=== PATIENT | female | born 1955 | race African-American/Black ===

== ENCOUNTER → 2017-06-02 | Outpatient (CLI) | payer BC ==
--- NOTE | 2017-06-02 14:06 | US ---
EXAMINATION TYPE: US thyroid st tissue head/neck DATE OF EXAM: 06/02/2017 COMPARISON: NONE CLINICAL HISTORY: R22.9 Lump of Skin. Pt states palpable lump right temporal/TMJ area x many years In area of pt's palpable there is a complex lesion= 1.8 x 1.5 x 1.8 cm, with vascularity IMPRESSION: Probable enlarged lymph node at the site of clinical concern. Contrast-enhanced CT of the neck is adv ised as well as clinical correlation.
== END | disposition home or self-care (01) ==
LOC: RADUSWWP 13:28
PROVIDERS: ATTEND Family Medicine
DX: R22.0 Localized swelling, mass and lump, head (principal)
CPT/HCPCS: 76536

== ENCOUNTER → 2017-06-13 | Outpatient (CLI) | payer BC ==
--- NOTE | 2017-06-13 09:12 | US ---
EXAMINATION TYPE: US kidneys/renal and bladder DATE OF EXAM: 06/13/2017 COMPARISON: NONE CLINICAL HISTORY: R94.4 ABN KIDNEY FUNCTIONS. No symptoms EXAM MEASUREMENTS: Right Kidney: 9.0 x 3.7 x 4.2 cm Left Kidney: 9.4 x 4.8 x 5.6 cm Right Kidney: slightly lobular contour Left Kidney: slightly lobular contour Bladder: wnl Bilateral Jets seen: no There is no evidence for hydronephrosis at this point in time. No nephrolithiasis is seen. No evgeny s are identified. The urinary bladder is anechoic. Bilateral ureteral jets are not seen. IMPRESSION: No hydronephrosis is evident bilaterally.
== END | disposition home or self-care (01) ==
LOC: RADUSWWP 08:27
PROVIDERS: ATTEND Family Medicine
DX: B18.2 Chronic viral hepatitis C (principal); R94.4 Abnormal results of kidney function studies
CPT/HCPCS: 76770

== ENCOUNTER → 2017-07-05 | Outpatient (CLI) | payer BC ==
--- NOTE | 2017-07-05 11:23 | US ---
EXAMINATION TYPE: US abdomen complete DATE OF EXAM: 07/05/2017 COMPARISON: NONE CLINICAL HISTORY: B18.2 HEP C, ELEV AFP. abnormal labs, no symptoms EXAM MEASUREMENTS: Liver Length: 19.5 cm Gallbladder Wall: 0.2 cm CBD: 0.6 cm Spleen: 12.3 cm Right Kidney: 9.3 x 3.6 x 4.0 cm Left Kidney: 9.1 x 3.9 x 6.7 cm Pancreas: wnl Liver: enlarged, slightly heterogenous Gallbladder: wnl Evidence for sonographic Ojeda's sign: no CBD: wnl Spleen: wnl Right Kidney: wnl Left Kidney: limited views due to bowel gas appear wnl Upper IVC: wnl Abd Aorta: wnl The liver is slightly enlarged and heterogenous. The intrahepatic portion of the IVC and proximal abd ominal aorta are within normal limits. There is no evidence of cholelithiasis. Common bile duct is unremarkable. The visualized portions of the pancreas are homogenous. The spleen is unremarkable. Kidneys are symmetric and free of hydronephrosis. No renal lesions are seen. IMPRESSION: 1. Fatty liver and hepatomegaly
== END | disposition home or self-care (01) ==
LOC: RADUSWWP 08:19
PROVIDERS: ATTEND Internal Medicine Infectious Disease
DX: K76.0 Fatty (change of) liver, not elsewhere classified (principal); R16.0 Hepatomegaly, not elsewhere classified; B18.2 Chronic viral hepatitis C
CPT/HCPCS: 76700

== ENCOUNTER → 2017-07-20 | Outpatient (CLI) | payer BC | END | disposition home or self-care (01) | LOC: LABWHC1 13:48 | PROVIDERS: ATTEND Internal Medicine Infectious Disease | DX: B18.2 Chronic viral hepatitis C (principal) | CPT/HCPCS: 36415 ==

== ENCOUNTER 2017-09-06 17:53 | Emergency (ER) | payer BC ==
[2017-09-06 18:10] LABS: Glucose,Whole Blood 377 mg/dL (75-99)
--- NOTE | 2017-09-06 18:46 | ED ---
Recheck HPI - General Chief Complaint: Recheck/Abnormal Lab/Rx Stated Complaint: High Blood Sugar Time Seen by Provider: 09/06/17 18:25 Source: patient Mode of arrival: wheelchair Limitations: no limitations - History of Present Illness Initial Comments: Type II diabetic presents for hyperglycemia. Patient states yesterday morning her glucose reading was "high". Patient states she took her regular Lantus and it went down to 140. Patient states her glucoses have been ranging from 1:30 to 400 over the past week. Had a reading of 400 this afternoon, so she came to ER. Patient states 4 months ago she was taken off metformin and Lantus was increased to 20 units once a day. Patient takes her Lantus at 11 PM normally, has not had it yet today. states she works midnights. Patient admits to increased thirst, mild increase in urinary frequency. She denies confusion, fatigue, sweating, abdominal pain, nausea, vomiting. Denies recent illnesses or infections. MD Complaint: abnormal lab - Related Data Home Medications Medication Instructions Recorded Confirmed Hydrochlorothiazide [Hydrodiuril] 25 mg PO DAILY 09/06/17 09/06/17 Insulin Glargine [Lantus] 20 unit SQ HS 09/06/17 09/06/17 Allergies Allergy/AdvReac Type Severity Reaction Status Date / Time tramadol Allergy Anaphylaxis Verified 09/06/17 19:03 Review of Systems ROS Statement: Those systems with pertinent positive or pertinent negative responses have been documented in the HPI. ROS Other: All systems not noted in ROS Statement are negative. Constitutional: Denies: fever, chills, weakness Eyes: Denies: vision change ENT: Denies: throat pain, congestion Respiratory: Denies: cough, dyspnea Cardiovascular: Denies: chest pain, palpitations Endocrine: Reports: polydipsia, polyuria. Denies: fatigue, heat or cold intolerance Gastrointestinal: Denies: abdominal pain, nausea, vomiting, diarrhea, constipation Genitourinary: Reports: frequency. Denies: urgency, dysuria, hematuria Skin: Denies: rash Neurological: Denies: headache, confusion Past Medical History Past Medical History: Diabetes Mellitus, Hypertension Additional Past Medical History / Comment(s): Hepatitis C History of Any Multi-Drug Resistant Organisms: None Reported Past Surgical History: Appendectomy Additional Past Surgical History / Comment(s): Past Psychological History: No Psychological Hx Reported Smoking Status: Current every day smoker Past Alcohol Use History: None Reported Past Drug Use History: None Reported General Exam - General Exam Comments Initial Comments: Sitting up on side of bed. No acute distress. Conversing normally. Well- groomed well-dressed. Calm, pleasant, smiling. Well appearing. Limitations: no limitations General appearance: alert, in no apparent distress Head exam: Present: atraumatic, normocephalic Eye exam: Present: PERRL, EOMI ENT exam: Present: mucous membranes moist Respiratory exam: Present: normal lung sounds bilaterally. Absent: respiratory distress, wheezes, rales Cardiovascular Exam: Present: regular rate, normal rhythm GI/Abdominal exam: Present: soft. Absent: distended, tenderness, guarding, rebound Neurological exam: Present: alert, oriented X3, CN II-XII intact Psychiatric exam: Present: normal affect, normal mood Skin exam: Present: warm, dry, intact, normal color. Absent: rash Course Vital Signs 09/06/17 18:04 Temperature 98.6 F Pulse Rate 65 Respiratory 16 Rate Blood Pressure 147/73 O2 Sat by Pulse 98 Oximetry Medical Decision Making - Medical Decision Making Patient is well-appearing. Patient appears to have chronic issues of hypoglycemia. Patient does not appear to have signs of DKA on exam. Patient's only symptoms are mild polydipsia and polyuria. Patient is due for lances later tonight. Patient's glucose on arrival 377. Patient states she can get into see her primary care physician tomorrow morning patient states she did not want to come to the ER because of the expenses, patient states she does not want have lab work done. Patient does agree to have UA completed. Patient declined IV fluids. Patient understands withou blood work completed cannot rule out more serious or significant pathology. Patient agrees to oral hydration with water until seen by her primary care physician. UA shows leukocyte esterase and some bacteria, however only 4 WBCs. Patient updated without results. She agrees to have repeat urinalysis if symptoms continue, may require antibiotics. She agrees to follow up with her primary care physician tomorrow for repeat glucose and insulin adjustment. Return immediately if new or worsening symptoms. Patient understands and agrees. Patient is smiling and happy with plan of care. - Lab Data Lab Results 09/06/17 09/06/17 Range/Units 18:07 18:45 POC Glucose (mg/dL) 377 H (75-99) mg/dL POC Glu [employer] Worker ID Sonali Goldstein Urine Color Yellow Urine Appearance Clear (Clear) Urine pH 6.5 (5.0-8.0) Ur Specific [place] 1.019 (1.001-1.035) Urine Protein Trace H (Negative) Urine Glucose (UA) 1+ H (Negative) Urine Ketones Negative (Negative) Urine Blood Negative (Negative) Urine Nitrite Negative (Negative) Urine Bilirubin Negative (Negative) Urine Urobilinogen 6.0 (<2.0) mg/dL Ur Leukocyte Esterase Moderate H (Negative) Urine RBC 1 (0-5) /hpf Urine WBC 4 (0-5) /hpf Ur Squamous Epith Cells 4 (0-4) /hpf Urine Bacteria Occasional H (None) /hpf Urine Mucus Rare H (None) /hpf Disposition Clinical Impression: Hyperglycemia Disposition: HOME SELF-CARE Condition: Good Instructions: Type 2 Diabetes in Adults (ED) Referrals: Faby Loving MD [Primary Care Provider] - 1-2 days
[2017-09-06 18:54] LABS: Appearance,Urine Clear (Clear); Bacteria,Urine Occasional /hpf; Bilirubin,Urine Negative (Negative); Glucose,Urine (UA) 1+ (Negative); Ketones,Urine Negative (Negative); Leukocyte Esterase,Urine Moderate (Negative); Mucus,Urine Rare /hpf; Nitrite,Urine Negative (Negative); PH, Urine 6.5 (5.0-8.0); Particle Count 3973; Protein,Urine Trace (Negative); RBC,Urine 1 /hpf (0-5); Specific Gravity,Urine 1.019 (1.001-1.035); Squamous Epithelial Cell,Urine 4 /hpf (0-4); UA Billing (MACRO vs. MICRO) MICRO; WBC,Urine 4 /hpf (0-5)
[2017-09-06 19:39] VITALS: BP 155/86; PULSE 67; RESP 18; TEMP 97.8
== END 2017-09-06 19:52 | disposition home or self-care (01) ==
LOC: EC 17:53
DX: E11.65 Type 2 diabetes mellitus with hyperglycemia (principal); I10 Essential (primary) hypertension; F17.200 Nicotine dependence, unspecified, uncomplicated; Z79.4 Long term (current) use of insulin; Z79.899 Other long term (current) drug therapy; Z88.5 Allergy status to narcotic agent
CPT/HCPCS: 36415; 81001; 99284

== ENCOUNTER → 2018-02-27 | Outpatient (CLI) | payer BC ==
[2018-02-27 13:49] LABS: Basophils % (A) 0 %; Eosinophils # (A) 0.2 k/uL (0-0.7); Eosinophils % (A) 2 %; HGB 12.9 gm/dL (11.4-16.0); Hypochromasia Slight; Lymphocytes % (A) 31 %; MCH 26.6 pg (25.0-35.0); MCHC 31.5 g/dL (31.0-37.0); MCV 84.4 fL (80.0-100.0); Mean Platelet Volume 7.9; Monocytes # (A) 0.5 k/uL (0-1.0); Monocytes % (A) 5 %; Neutrophils # (A) 5.7 k/uL (1.3-7.7); Neutrophils % (A) 59 %; Platelet Count 221 k/uL (150-450); RBC 4.85 m/uL (3.80-5.40); RDW 14.9 % (11.5-15.5); WBC 9.6 k/uL (3.8-10.6)
[2018-02-27 14:06] LABS: Anion Gap 13 mmol/L; Blood Urea Nitrogen 15 mg/dL (7-17); Carbon Dioxide 25 mmol/L (22-30); Chloride 110 mmol/L (98-107); Glucose 149 mg/dL (74-99); Potassium 4.1 mmol/L (3.5-5.1); Sodium 148 mmol/L (137-145)
[2018-02-28 15:27] LABS: Hepatits C Virus RNA Not detected (Not detected); Hepatits C Virus RNA, Quant <12 IU/mL (<12); LOG HCV IU/mL <1.08 (<1.08)
== END | disposition home or self-care (01) ==
LOC: LABWHC1 13:05
PROVIDERS: ATTEND Internal Medicine Infectious Disease
DX: B18.2 Chronic viral hepatitis C (principal)
CPT/HCPCS: 36415; 80048; 85025; 87522

== ENCOUNTER → 2018-05-09 | Outpatient (CLI) | payer BC ==
[2018-05-09 16:25] LABS: Basophils % (A) 0 %; Eosinophils # (A) 0.3 k/uL (0-0.7); Eosinophils % (A) 4 %; HCT 38.2 % (34.0-46.0); HGB 12.1 gm/dL (11.4-16.0); Lymphocytes # (A) 2.9 k/uL (1.0-4.8); Lymphocytes % (A) 31 %; MCH 26.8 pg (25.0-35.0); MCHC 31.8 g/dL (31.0-37.0); MCV 84.3 fL (80.0-100.0); Mean Platelet Volume 7.4; Monocytes # (A) 0.4 k/uL (0-1.0); Monocytes % (A) 4 %; Neutrophils # (A) 5.5 k/uL (1.3-7.7); Neutrophils % (A) 59 %; Platelet Count 217 k/uL (150-450); RBC 4.53 m/uL (3.80-5.40); RDW 14.3 % (11.5-15.5); WBC 9.3 k/uL (3.8-10.6)
[2018-05-09 16:33] LABS: Calcium 10.1 mg/dL (8.4-10.2); Potassium 4.1 mmol/L (3.5-5.1)
[2018-05-11 14:45] LABS: Hepatits C Virus RNA Not detected (Not detected); Hepatits C Virus RNA, Quant <12 IU/mL (<12); LOG HCV IU/mL <1.08 (<1.08)
== END | disposition home or self-care (01) ==
LOC: LABWHC1 15:52
PROVIDERS: ATTEND Internal Medicine Infectious Disease
DX: B18.2 Chronic viral hepatitis C (principal)
CPT/HCPCS: 36415; 80048; 82105; 84450; 84460; 85025; 87522

== ENCOUNTER → 2019-07-11 | Outpatient (CLI) | payer BC ==
--- NOTE | 2019-07-19 10:11 | MM ---
Reason for exam: screening (asymptomatic). Last mammogram was performed 8 years and 1 month ago. History: Patient is postmenopausal. Physical Findings: A clinical breast exam by your physician is recommended on an annual basis and results should be correlated with mammographic findings. MG Screening Mammo w CAD Bilateral CC and MLO view(s) were taken. Prior study comparison: June 14, 2011, mammogram. There are scattered fibroglandular densities. Finding: There are new fine regional calcifications in the inner quadrant, anterior position of the right breast. Focal asymmetry right inner CC view. New finding since June 14, 2011. ASSESSMENT: Incomplete: need additional imaging evaluation, BI-RAD 0 RECOMMENDATION: Special view mammogram of the right breast. If lesion persists on supplemental views, image directed ultrasound is recommended. [facility] will attempt to contact patient to return for supplemental views and ultrasound if indicated.
== END | disposition home or self-care (01) ==
LOC: RADMAMWWP 09:07
PROVIDERS: ATTEND Family Medicine
DX: Z12.31 Encounter for screening mammogram for malignant neoplasm of breast (principal)
CPT/HCPCS: 77067

== ENCOUNTER → 2019-07-20 | Outpatient (CLI) | payer BC ==
--- NOTE | 2019-07-20 13:16 | CT ---
EXAMINATION TYPE: CT soft tissue neck w con DATE OF EXAM: 07/20/2019 COMPARISON: None HISTORY: 64-year-old female Right sided swelling. TECHNIQUE: Contiguous axial scanning of the soft tissues of the neck performed with IV Contrast, kristopher ent injected with 100 mL of Isovue 300. Coronal/sagittal reconstructions performed. CT DLP: 513.6 mGycm Automated exposure control for dose reduction was used. FINDINGS: There is an enhancing anterior midline mass that appears to have a broad-based attachment on sagittal series to the floor of the anterior cranial fossa. The mass measures 2.1 x 1.6 cm and is located dir ectly anterior to the anterior cerebral artery. Orbits and globes and mastoid air cells appear clear. There is mucosal thickening within the left fro ntal sinus. The nasopharynx appears clear. Mild tonsillar hypertrophy, particularly on the right causing asymmetric effacement of the right vall ecular space. No enhancing mucosal space lesion here. Epiglottis and prevertebral soft tissues appear normal. The glottic and subglottic structures as well as the tracheal column and visualized upper lungs appea r clear. There is biapical pleural parenchymal scarring with moderate centrilobular emphysema. Thyroid gland and submandibular gland appears satisfactory. Possible vague area of nodular enhancement posterior aspect of the superficial left parotid lobe on t he anterior margin of the left sternocleidomastoid measuring 1.3 x 1.3 x 1.1 cm, reference axial imag e 64 and coronal image 39. In addition, there is a mildly lobulated heterogeneous, avidly enhancing mass of the right superficia l lobe of the parotid gland measuring 2.2 x 2.0 x 2.0 cm. Scattered prominent but nonenlarged upper cervical lymph nodes measuring up to 8 mm short axis. Bones: Moderate spondylotic change mid to lower cervical spine with degenerative grade 1 anterolisthe sis at C3-C4. IMPRESSION: 1. HETEROGENEOUS BUT AVIDLY ENHANCING 2.2 CM MILDLY LOBULATED MASS SUPERFICIAL LOBE OF THE RIGHT PARO TID GLAND. POSSIBLE PLEOMORPHIC ADENOMA. MALIGNANT SALIVARY GLAND TUMOR NOT EXCLUDED AT THIS TIME. 2. A SECOND NODULAR AREA OF MILD ENHANCEMENT POSTERIOR ASPECT OF THE LEFT SUPERFICIAL LOBE OF THE PAR OTID GLAND MEASURING 1.3 CM. CORRELATE FOR ANY PALPABLE ABNORMALITY AND CONSIDER ULTRASOUND TO ATTEMP T VISUALIZATION AND FOLLOW-UP OF THIS AREA. 3. ENHANCING INTRACRANIAL MASS MEASURING 2.1 CM ALONG THE ANTERIOR MIDLINE. THIS IS LOCATED ALONG THE COURSE OF THE ANTERIOR CEREBRAL ARTERY BUT SEEMS TO HAVE A BROAD-BASED ATTACHMENT TO THE FLOOR OF TH E ANTERIOR CRANIAL FOSSA. MENINGIOMA IS FAVORED. CONTRAST-ENHANCED MRI ALONG WITH MR ANGIOGRAPHY CIRC LE OF PANDEY RECOMMENDED TO EXCLUDE THE POSSIBILITY OF ANEURYSM. 4. PARTIAL ASYMMETRIC EFFACEMENT RIGHT VALLECULAR SPACE LIKELY SECONDARY TO ASYMMETRIC LINGUAL TONSIL LAR HYPERTROPHY. NO ENHANCING MUCOSAL SPACE LESION SEEN HERE.
== END | disposition home or self-care (01) ==
LOC: RADCTMAIN 10:16
PROVIDERS: ATTEND Otolaryngology
DX: R22.1 Localized swelling, mass and lump, neck (principal); J35.1 Hypertrophy of tonsils; K11.8 Other diseases of salivary glands; Z88.6 Allergy status to analgesic agent
CPT/HCPCS: 82565; 84520; 70491; 36415; Q9967

== ENCOUNTER → 2019-08-02 | Outpatient (CLI) | payer BC ==
--- NOTE | 2019-08-03 09:11 | MM ---
Reason for exam: additional evaluation requested from abnormal screening. Last mammogram was performed 1 month ago. History: Patient is postmenopausal. Physical Findings: Nurse Summary: 1 x 1cm nodule in the right breast at 6 o'clock (nurse ts). MG 3D Work Up W/Cad RT Spot compression CC, spot compression MLO, LM, and CC with magnification view(s) were taken of the right breast. Prior study comparison: July 11, 2019, bilateral MG screening mammo w CAD. June 14, 2011, mammogram. Nodule persists. Ultrasound is recommended lower inner quadrant. These results were verbally communicated with the patient and result sheet given to the patient on 08/02/19. ASSESSMENT: Incomplete: need additional imaging evaluation, BI-RAD 0 RECOMMENDATION: Ultrasound of the right breast.
--- NOTE | 2019-08-03 09:13 | USB ---
Reason for exam: additional evaluation requested from abnormal screening. History: Patient is postmenopausal. US Breast Workup Limited RT Right limited breast ultrasound including focal area of concern, retroareolar and axilla demonstrates a 0.6 x 0.4 x 0.5cm hypoechoic lesion at 4 o'clock, a 0.3 x 0.2 x 0.3cm lesion too small to characterize at 6 o'clock and a 0.8 x 0.3 x 1.0cm superficial lesion at 6 o'clock. These results were verbally communicated with the patient and result sheet given to the patient on 08/02/19. ASSESSMENT: Benign, BI-RAD 2 RECOMMENDATION: Return to routine screening mammogram schedule for both breasts.
== END | disposition home or self-care (01) ==
LOC: RADMAMWWP 13:44
PROVIDERS: ATTEND Family Medicine
DX: R92.8 Other abnormal and inconclusive findings on diagnostic imaging of breast (principal)
CPT/HCPCS: 77061; 77065

== ENCOUNTER → 2020-06-10 | Outpatient (CLI) | payer BC ==
--- NOTE | 2020-06-10 13:05 | MR ---
EXAMINATION TYPE: MR angio head wo con DATE OF EXAM: 06/10/2020 12:59 PM COMPARISON: NONE HISTORY: Abnormal CT scan Three-dimensional [id number] intracranial MRA was performed with multiple intensity projection im ages submitted and source data reviewed at the workstation. The vertebrobasilar system as well as intracranial portions of the internal carotid arteries and thei r major tributaries are patent. I do not see evidence for sizable aneurysm or vascular malformation. IMPRESSION: Normal study.
--- NOTE | 2020-06-10 13:34 | MR ---
EXAMINATION TYPE: MR brain wo con DATE OF EXAM: 06/10/2020 1:04 PM COMPARISON: NONE HISTORY: Abnormal CT scan The patient could not complete the full examination given claustrophobia. Sagittal T1 data set was ob tained. The study is therefore nondiagnostic. IMPRESSION: Nondiagnostic examination as noted above.
== END | disposition home or self-care (01) ==
LOC: RADMRIMAIN 11:30
PROVIDERS: ATTEND Family Medicine
DX: R93.89 Abnormal findings on diagnostic imaging of other specified body structures (principal)
CPT/HCPCS: 70544

== ENCOUNTER → 2020-07-18 | Outpatient (CLI) | payer BC ==
--- NOTE | 2020-07-18 17:04 | MR ---
EXAMINATION TYPE: MR knee LT wo con DATE OF EXAM: 07/18/2020 COMPARISON: None HISTORY: Left knee pain TECHNIQUE: Multiplanar, multisequence imaging of the left knee is performed without IV contrast. FINDINGS: MEDIAL MENISCUS: Posterior horn of the medial meniscus is markedly attenuated, there is abnormal sign al present as well as thickening. LATERAL MENISCUS: Anterior and posterior horns are intact without tear. CRUCIATE LIGAMENTS: The anterior and posterior cruciate ligaments are intact and unremarkable. COLLATERAL LIGAMENTS: The medial collateral ligament and lateral collateral ligament complex are inta ct and unremarkable. EXTENSOR MECHANISM: Visualized quadriceps and patellar tendons are intact. EFFUSION: Small joint effusion POPLITEAL CYST: Minimal semimembranosus gastrocnemius cyst TRICOMPARTMENT SPACES: Reduction of the joint space and medial compartment is significant and there i s spurring in the medial lateral compartments CARTILAGE: Grade IV chondromalacia present in the medial compartment, there is marked geodes present within the proximal tibia, medial femoral condyle BONE MARROW SIGNAL: Some reactive marrow signal change also present with the associated geodes. OTHER: No additional significant abnormality is appreciated. 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
== END | disposition home or self-care (01) ==
LOC: RADMRIMAIN 14:43
PROVIDERS: ATTEND Family Medicine
DX: M17.12 Unilateral primary osteoarthritis, left knee (principal); G89.29 Other chronic pain

== ENCOUNTER → 2020-09-12 | Outpatient (CLI) | payer BC ==
[2020-09-12 20:19] LABS: Hepatitis B Surface AB- Quant 3.5 mIU/mL; Hepatitis B Surface Antibody Non-Reactive (Non-Reactive); Hepatitis B Surface Antigen Non-Reactive (Non-Reactive); Hepatitis C IgG Antibody Reactive (Non-Reactive)
[2020-09-12 20:53] LABS: HIV 2 AB Non-Reactive (Non-Reactive); HIV AB P24 Non-Reactive (Non-Reactive); HIV P24 AG Non-Reactive (Non-Reactive)
== END | disposition home or self-care (01) ==
LOC: LABWHC1 13:10
PROVIDERS: ATTEND Internal Medicine Interventional Cardiology
DX: Z77.21 Contact with and (suspected) exposure to potentially hazardous body fluids (principal)
CPT/HCPCS: 36415; 86706; 86803; 87340; 87390

== ENCOUNTER 2021-07-28 16:46 | Emergency (ER) | payer OTHER, MEDICARE ==
[2021-07-28 17:05] VITALS: RESP 18; TEMP 98.8
[2021-07-28] MEDS ORDERED: ALPRAZolam 0.25 MG TAB PO STA (17:18)
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
[2021-07-28 18:19] VITALS: BP 135/83; PULSE 72
== END 2021-07-28 18:22 | disposition home or self-care (01) ==
LOC: EC 16:46
DX: S20.211A Contusion of right front wall of thorax, initial encounter (principal); I10 Essential (primary) hypertension; E11.9 Type 2 diabetes mellitus without complications; Z88.5 Allergy status to narcotic agent; Z88.8 Allergy status to other drugs, medicaments and biological substances; Z90.49 Acquired absence of other specified parts of digestive tract; V43.52XA Car driver injured in collision with other type car in traffic accident, initial encounter; Y92.410 Unspecified street and highway as the place of occurrence of the external cause
CPT/HCPCS: 70450; 71046; 99285

== ENCOUNTER → 2021-08-03 | Outpatient (CLI) | payer OTHER, MEDICARE ==
--- NOTE | 2021-08-03 09:58 | US ---
EXAMINATION TYPE: US abdomen complete DATE OF EXAM: 08/03/2021 COMPARISON: CLINICAL HISTORY: R10.11 Right upper quadrant pain,S20.212D,V89.2XXD,S30.1XXD. RUQ pain. EXAM MEASUREMENTS: Liver Length: 16.2 cm Gallbladder Wall: 0.2 cm CBD: 0.3 cm Spleen: 11.0 cm Right Kidney: 10.7 x 4.0 x 3.9 cm Left Kidney: 10.7 x 4.1 x 5.4 cm Pancreas: Echogenic in appearance Liver: wnl Gallbladder: wnl Evidence for sonographic Ojeda's sign: neg CBD: wnl Spleen: wnl Right Kidney: No hydronephrosis or masses seen Left Kidney: No hydronephrosis or masses seen Upper IVC: wnl Abd Aorta: Proximal aorta no AAA visualized The liver is homogenous. The intrahepatic portion of the IVC and proximal abdominal aorta are within normal limits. There is no evidence of cholelithiasis. Common bile duct is unremarkable. The visu alized portions of the pancreas are homogenous. The spleen is unremarkable. Kidneys are symmetric a nd free of hydronephrosis. No renal lesions are seen. IMPRESSION: No significant abnormality appreciated.
== END | disposition home or self-care (01) ==
LOC: RADUSWWP 08:55
PROVIDERS: ATTEND Family Medicine
DX: R10.11 Right upper quadrant pain (principal)
CPT/HCPCS: 76700

== ENCOUNTER 2022-09-05 11:28 | Emergency (ER) | payer OTHER ==
[2022-09-05 11:44] VITALS: RESP 20; TEMP 98
[2022-09-05] MEDS ORDERED: DIPH,PERTUS(ACELL)TETVAC-LF 0.5 ML VIAL IM ONE (12:04)
--- NOTE | 2022-09-05 12:39 | ED ---
Wound/Laceration HPI - General Chief Complaint: Wound/Laceration Stated Complaint: [facility] - lt hand finger lac Time Seen by Provider: 09/05/22 11:46 Source: patient Mode of arrival: ambulatory Limitations: no limitations - History of Present Illness Initial Comments: Patient is a 67-year-old female presenting with chief complaint of laceration to the R 5th finger. Patient was at work getting tinfoil when she cut her finger on the blade on the box. Patient does not remember when her last tetanus shot was. She denies any numbness or tingling. No difficulty with range of motion. No weakness. Laceration is 1 cm in length. - Related Data Home Medications Medication Instructions Recorded Confirmed Insulin Glargine [Lantus] 25 unit SQ HS 09/06/17 01/27/22 Atorvastatin [Lipitor] 10 mg PO DAILY 01/14/22 01/27/22 Ergocalciferol [Vitamin D2 (1250 50,000 unit PO WEEKLY 01/14/22 01/22/22 Mcg = 32954 Iu)] Ibuprofen [Motrin] 800 mg PO Q8H 01/14/22 01/27/22 Losartan Potassium 100 mg PO DAILY 01/14/22 01/22/22 Metoprolol Tartrate [Lopressor] 25 mg PO DAILY 01/14/22 01/22/22 amLODIPine [Norvasc] 10 mg PO DAILY 01/14/22 01/22/22 metFORMIN HCL [Glucophage] 1,000 mg PO BID 01/14/22 01/27/22 Acetaminophen Tab [Tylenol Tab] 1,000 mg PO Q6HR PRN 01/22/22 01/27/22 Aspirin [Adult Low Dose Aspirin EC] 81 mg PO DAILY 01/22/22 01/22/22 DULoxetine HCL [Cymbalta] 60 mg PO HS 01/22/22 01/22/22 Allergies Allergy/AdvReac Type Severity Reaction Status Date / Time lisinopril Allergy Anaphylaxis Verified 09/05/22 11:45 tramadol Allergy Anaphylaxis Verified 09/05/22 11:45 Review of Systems ROS Statement: Those systems with pertinent positive or pertinent negative responses have been documented in the HPI. ROS Other: All systems not noted in ROS Statement are negative. Past Medical History Past Medical History: Diabetes Mellitus, Hypertension Additional Past Medical History / Comment(s): Hepatitis C, right parotid mass History of Any Multi-Drug Resistant Organisms: None Reported Past Surgical History: Appendectomy Additional Past Surgical History / Comment(s): partoid mass biopsy Past Anesthesia/Blood Transfusion Reactions: No Reported Reaction Past Psychological History: No Psychological Hx Reported Smoking Status: Current every day smoker Past Alcohol Use History: None Reported Past Drug Use History: None Reported - Past Family History Mother Family Medical History: No Reported History General Exam Limitations: no limitations General appearance: alert, in no apparent distress Head exam: Present: atraumatic, normocephalic, normal inspection Eye exam: Present: normal appearance, PERRL, EOMI. Absent: scleral icterus, conjunctival injection, periorbital swelling Neck exam: Present: normal inspection Neurological exam: Present: alert, oriented X3, CN II-XII intact Psychiatric exam: Present: normal affect, normal mood Skin exam: Present: warm, dry, normal color. Absent: rash Expanded Type of lesion: Present: laceration (1cm R 5th digit) Course Vital Signs 09/05/22 09/05/22 11:43 13:00 Temperature 98 F Pulse Rate 60 74 Respiratory 20 20 Rate Blood Pressure 166/85 154/76 O2 Sat by Pulse 99 97 Oximetry Procedures - Laceration Laceration #1 Consent Obtained: verbal consent Indication: laceration Site: hand (Right fifth digit) Size (cm): 1 Description: linear Anesthetic Used: lidocaine 1%, without epi Anesthesia Technique: local infiltration Pre-repair: wound explored, irrigated extensively Type of Sutures: nylon Size of Sutures: 4-0 Number of Sutures: 2 Patient Tolerated Procedure: well Medical Decision Making - Medical Decision Making Patient is a 67-year-old female presenting with chief complaint of laceration. Patient sustained 1 cm laceration to the right fifth digit while at work, she cut it on a box of tinfoil. Patient's tetanus is updated here in the ER. She has full range of motion and is neurovascularly intact. Wound is repaired using 2 similar episodes sutures with 4-0 nylon. Educated on wound care and supportive treatment. Follow-up with PCP. Report back to ER with any new or worsening symptoms. Discussed return parameters and answered all questions. Patient conveyed verbal understanding and agreed to the plan. I discussed this case in detail with my attending Dr. Ulrich Disposition Clinical Impression: Laceration Disposition: HOME SELF-CARE Condition: Good Instructions (If sedation given, give patient instructions): Care For Your St itches (ED), Finger Laceration (ED) Additional Instructions: Follow-up with PCP. Report back to ER with any new or worsening symptoms. Sutures may be removed in 10-14 days. This can be done by her PCP, at a local urgent care, or here in the ER. Monitor for signs of infection, including but not limited to redness, swelling, warmth, tenderness, discharge, fever, chills. Do not fully submerge, avoid swimming in bats. Cleanse gently with soap and water. Keep clean, dry, and covered. Is patient prescribed a controlled substance at d/c from ED?: No Referrals: Faby Loving MD [Primary Care Provider] - 1-2 days Time of Disposition: 12:38
[2022-09-05 13:01] VITALS: BP 154/76; PULSE 74
== END 2022-09-05 13:00 | disposition home or self-care (01) ==
LOC: EC 11:28
DX: S61.216A Laceration without foreign body of right little finger without damage to nail, initial encounter (principal); E11.9 Type 2 diabetes mellitus without complications; I10 Essential (primary) hypertension; F17.200 Nicotine dependence, unspecified, uncomplicated; Z79.4 Long term (current) use of insulin; Z79.899 Other long term (current) drug therapy; Z79.82 Long term (current) use of aspirin; Z88.8 Allergy status to other drugs, medicaments and biological substances; Z88.5 Allergy status to narcotic agent; Z23 Encounter for immunization; W26.8XXA Contact with other sharp object(s), not elsewhere classified, initial encounter; Y99.0 Civilian activity done for income or pay
CPT/HCPCS: 12001; 90471; 90715; 99282

== ENCOUNTER → 2023-06-29 | Outpatient (CLI) | payer OTHER ==
--- NOTE | 2023-06-29 13:15 | US ---
EXAMINATION TYPE: US abdomen complete DATE OF EXAM: 06/29/2023 COMPARISON: US 2020 CLINICAL INDICATION: Female, 68 years old with history of R74.8 ABNORMAL LEVELS OF OTHER SERUM ENZYME S; TECHNIQUE: Multiple sonographic images of the abdomen are obtained. FINDINGS: EXAM MEASUREMENTS: Liver Length: 17.0 cm Gallbladder Wall: 0.3 cm CBD: 0.6 cm Spleen: 9.7 cm Right Kidney: 10.8 x 4.1 x 4.2 cm Left Kidney: 11.0 x 5.0 x 6.1 cm Pancreas: visualized portions wnl, limited by overlying midline bowel gas Liver: measures in upper limits of normal, heterogeneous with 7.1 x 4.5 x 5.8cm vascular hypoechoic area seen Gallbladder: Decompressed. This may account for some borderline wall thickening. Clinical considerat ion for cholecystitis is recommended. Evidence for sonographic Ojeda's sign: no CBD: visualized portions wnl, limited by overlying bowel gas Spleen: wnl Right Kidney: wnl Left Kidney: wnl Upper IVC: wnl Abd Aorta: visualized portions wnl, limited by overlying midline bowel gas. IMPRESSION: 1. Hypoechoic vascular lesion in the liver. Additional workup with contrast CT abdomen is recommended . 2. Clinical consideration for cholecystitis is recommended.
--- NOTE | 2023-06-29 14:32 | US ---
EXAMINATION TYPE: US pelvis complete transvag DATE OF EXAM: 06/29/2023 COMPARISON: NONE CLINICAL INDICATION: Female, 68 years old with history of R74.8 ABNORMAL LEVELS OF OTHER SERUM ENZYME S; TECHNIQUE: . Transabdominal sonographic images of the pelvis were acquired. Transvaginal sonographi c images were medically necessary to better assess the following anatomy: uterus and ovaries Date of LMP: 20+ years ago EXAM MEASUREMENTS: Uterus: 5.0 x 2.6 x 3.7 cm Endometrial Stripe: 0.2 cm Right Ovary: not seen cm Left Ovary: not seen cm 1. Uterus: anteverted 2. Endometrium: small amount of fluid 3. Right Ovary: not seen due to overlying bowel gas 4. Left Ovary: not seen due to overlying bowel gas 5. Bilateral Adnexa: wnl 6. Posterior cul-de-sac: wnl Urinary bladder is sonolucent. Posterior wall appears normal. IMPRESSION: 1. Small amount of fluid within the endometrial canal.
== END | disposition home or self-care (01) ==
LOC: RADUSWWP 07:39
PROVIDERS: ATTEND Family Medicine
DX: K76.89 Other specified diseases of liver (principal); R74.8 Abnormal levels of other serum enzymes
CPT/HCPCS: 76700; 76830; 76856

== ENCOUNTER → 2023-07-13 | Outpatient (CLI) | payer MEDICARE ==
[2023-07-13 11:37] LABS: African American GFR (CKD) 89 (>60 ml/min/1.73 sqM); Blood Urea Nitrogen 23 mg/dL (7-17); Non-African American GFR(CKD) 77 (>60 ml/min/1.73 sqM)
--- NOTE | 2023-07-13 14:01 | CT ---
EXAMINATION TYPE: CT abdomen pelvis w con CT DLP: 1616 mGycm, Automated exposure control for dose reduction was used. DATE OF EXAM: 07/13/2023 12:58 PM COMPARISON: Pelvic ultrasound 06/29/2023, abdominal ultrasound 06/29/2023 CLINICAL INDICATION:Female, 68 years old with history of K76.9 LIVER DISEASE, UNSPECIFIED, N85.9; Keyonna er disease. TECHNIQUE: Standard CT of the abdomen and pelvis following the administration of 100 cc of Isovue 3 00 IV contrast material and oral contrast. Coronal and sagittal reformats were performed. FINDINGS: LOWER CHEST: Left lower lobe bulla. ABDOMEN LIVER: Cirrhotic appearance of the liver with surface nodularity. Multiple heterogenous lesions of en hancement within both lobes. There is washout on the delayed phase involving these lesions. Largest l esion is within the inferior right hepatic lobe measuring up to 7.2 cm (series 7, image 37). Approxim ately 40 lesions suggested. Most lesions are identified within the right hepatic lobe. Portal vein is patent. SMV is patent. Splenic vein is patent. GALLBLADDER AND BILE DUCTS: Unremarkable. PANCREAS: Unremarkable. SPLEEN: Subcentimeter hypodense foci within the spleen which is too small to characterize. ADRENAL GLANDS: Unremarkable. KIDNEYS AND URETERS: No evidence of hydronephrosis or renal calculus. The kidneys enhance symmetrical ly. Bilateral small renal cysts. PELVIS BLADDER: Under distended, limiting evaluation. REPRODUCTIVE: Retroverted uterus. ABDOMEN & PELVIS STOMACH AND BOWEL: Stomach and duodenum are unremarkable. Enteric contrast reaches the mid small nereyda l. No focal bowel wall thickening or surrounding inflammatory changes. No evidence of bowel obstructi on. PERITONEUM: No evidence of pneumoperitoneum or free fluid. VASCULATURE: No evidence of aortic aneurysm. MUSCULOSKELETAL: No acute osseous abnormalities . Degenerative disease at L5-S1 with disc space narro wing, endplate sclerosis, vacuum disc disease, and anterior osteophytosis. LYMPH NODES: No evidence for lymphadenopathy. SOFT TISSUE/ABDOMINAL WALL: Unremarkable IMPRESSION: Hepatic cirrhosis with multiple bilateral lobar heterogenous enhancing lesions with washout. Dominant right inferior hepatic lobe lesion measuring up to 7.2 cm. 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
== END | disposition home or self-care (01) ==
LOC: RADCTMAIN 11:00
PROVIDERS: ATTEND Family Medicine
DX: K74.60 Unspecified cirrhosis of liver (principal); N85.9 Noninflammatory disorder of uterus, unspecified
CPT/HCPCS: 82565; 84520; 74177; 36415; Q9967

== ENCOUNTER → 2023-07-20 | Outpatient (CLI) | payer MEDICARE ==
--- NOTE | 2023-07-20 21:01 | CTL ---
EXAMINATION TYPE: CT Low Dose Lung DATE OF EXAM: 07/20/2023 7:52 PM CLINICAL INDICATION:Female, 68 years old with history of Z12.2 ENCNTR SCREEN FOR MALIGNANT NEOPLASM O F RES, history of tobacco use. COMPARISON: None. TECHNIQUE: Multiple axial non-contrast scans were obtained from approximately the lung apices through the upper abdomen. Coronal and sagittal reformatted images were obtained. Low dose technique was uti lized. CT DLP: 94 mGycm, Automated exposure control for dose reduction was used. CT Contrast: Contrast used: None Oral contrast used: None FINDINGS: ======== Lack of intravenous contrast and low dose technique limits the evaluation of the vascular and soft ti ssue structures. LUNGS: No evidence of pulmonary fibrosis. No evidence of focal consolidation, pneumothorax or pleural effusion. [id number] paraseptal and centrilobular emphysema changes. Nodules: * RUL: Air below calcified granuloma. * RML: None. * RLL: None. * SHAJI: Calcified granuloma image 54 series 2 * LML: Anatomic variant left middle lobe, Intrafissural lymph node series 3 image 132. 4 mm image 17 3 * LLL: Air cysts next to the medial aspect of the left lower lobe. 4 mm pulmonary nodule series 2 im age 217. AIRWAY: Patent and unremarkable. HEART: Size within normal limits. MEDIASTINUM: No gross evidence of adenopathy. VASCULATURE: No aortic aneurysm. MUSCULOSKELETAL: No acute osseous abnormalities SOFT TISSUES/LYMPH NODES: Unremarkable. LOWER NECK: No significant findings. UPPER ABDOMEN: No significant findings. IMPRESSION: 1. 4 mm pulmonary nodules most pronounced in left lower lobe and anatomic variant left middle lobe. 2. [id number] emphysema changes. CT LUNG RAD AND CT CHEST RECOMMENDATION: Lung-Rad 3 Probably Benign: 6 month follow-up LDCT. S Modifier (other clinically significant findings): None Recommend smoking cessation (if current smoker), or continuation of smoking cessation (if prior smoke r). Annual screening for lung cancer with low-dose computed tomography is recommended in adults ages 55 to 77 years who have a 30 pack-year smoking history and currently smoke or have quit within the pa st 15 years. Screening should be discontinued once a person has not smoked for 15 years or develops a health problem that substantially limits life expectancy or the ability or willingness to have curat earl lung surgery. Lung rads 2021 [email or web address]
== END | disposition home or self-care (01) ==
LOC: RADCTMAIN 18:21
PROVIDERS: ATTEND Family Medicine
DX: Z12.2 Encounter for screening for malignant neoplasm of respiratory organs (principal); J43.2 Centrilobular emphysema; F17.210 Nicotine dependence, cigarettes, uncomplicated
CPT/HCPCS: 71271

== ENCOUNTER → 2023-09-20 | Outpatient (CLI) | payer MEDICARE ==
--- NOTE | 2023-09-20 08:08 | MM ---
Reason for Exam: Screening (asymptomatic). Last mammogram was performed 4 year(s) and 3 month(s) ago. Patient History: Menarche at age 10. First Full-Term at age 16. Postmenopausal. Risk Values: Betty 5 year model risk: 1.7%. NCI Lifetime model risk: 4.8%. Prior Study Comparison: 06/14/2011 Screening Mammogram, Unknown. 07/11/2019 Bilateral Screening Mammogram, [facility]. 08/02/2019 Right Diagnostic Mammogram, [facility]. Tissue Density: There are scattered fibroglandular densities. Findings: Analyzed By CAD. There is no suspicious group of microcalcifications or new suspicious mass in either breast. Chronic nodularity within the right breast. Overall Assessment: Benign, BI-RAD 2 Management: Screening Mammogram of both breasts in 1 year. A clinical breast exam by your physician is recommended on an annual basis and results should be correlated with mammographic findings. Note on Betty scores and lifetime risk: 1. A Betty score greater than 3% is considered moderate risk. If this is the case, consider specialist referral to assess eligibility for a risk reducing agent. If overall lifetime risk for the development of breast cancer is 20% or higher, the patient may qualify for future screening with alternating mammogram and breast MRI. Electronically signed and approved by: Yannick Butler D.O.
== END | disposition home or self-care (01) ==
LOC: RADMAMWWP 07:40
PROVIDERS: ATTEND Family Medicine
DX: Z12.31 Encounter for screening mammogram for malignant neoplasm of breast (principal); Z78.0 Asymptomatic menopausal state
CPT/HCPCS: 77063; 77067

== ENCOUNTER 2023-10-12 13:20 | Observation (INO) | payer MEDICARE ==
--- NOTE | 2023-10-12 13:48 | ED ---
Abdominal Pain HPI - General Source: patient, RN notes reviewed Mode of arrival: ambulatory Limitations: no limitations <Jimmie Agosto - Last Filed: 10/12/23 13:47> <Trever Peña - Last Filed: 10/12/23 18:12> - General Chief Complaint: Abdominal Pain Stated Complaint: Jaundice Time Seen by Provider: 10/12/23 13:47 - History of Present Illness Initial Comments: 68-year-old female presents emergency Department chief complaint of abdominal pain, liver issues, shortness breath. Patient has a history of CVA, hepatitis C. Patient received phone call from the space stating that she needed to come in because of some liver issues. She does not that she's been having abdominal pain, shortness of breath. (Jimmie Agosto) Dictation was produced using [employer] dictation software. please excuse any grammatical, word or spelling errors. Chief Complaint: 68-year-old female sent in by primary care physician for new- onset jaundice History of Present Illness: Is a 68-year-old female she has new-onset jaundice. She was seen her primary care physician's office for follow-up. She's been having outpatient liver cancer workup. He'll establish care with oncology at [facility] in [place]. She is nearing the initiation of chemo and radiation therapy. States that she did have a poor appetite. Denies any abdominal pain. She notices morning that she seemed a little yellow. She went to PCPs office noted to have some scleral icterus she was told to come to the ER. The ROS documented in this emergency department record has been reviewed and confirmed by me. Those systems with pertinent positive or negative responses have been documented in the HPI. All other systems are other negative and/or noncontributory. (Trever Peña) - Related Data Home Medications Medication Instructions Recorded Confirmed Atorvastatin [Lipitor] 10 mg PO HS 01/14/22 10/12/23 Losartan Potassium 100 mg PO DAILY 01/14/22 10/12/23 Metoprolol Tartrate [Lopressor] 25 mg PO DAILY 01/14/22 10/12/23 Acetaminophen Tab [Tylenol Tab] 1,000 mg PO Q6HR PRN 01/22/22 10/12/23 Aspirin [Adult Low Dose Aspirin EC] 81 mg PO DAILY 01/22/22 10/12/23 HYDROcodone/APAP 5-325MG [[place] 1 tab PO Q6HR PRN 10/12/23 10/12/23 5-325] Ibuprofen [Motrin Ib] 200 - 800 mg PO Q8H PRN 10/12/23 10/12/23 Insulin Glargine,Hum.rec.anlog 10 units SQ DAILY 10/12/23 10/12/23 [Lantus Solostar Pen] Naloxone HCl [Narcan] 4 mg NASAL DIRECTED PRN 10/12/23 10/12/23 Pioglitazone [Actos] 30 mg PO DAILY 10/12/23 10/12/23 amLODIPine [Norvasc] 5 mg PO DAILY 10/12/23 10/12/23 hydrOXYzine HCL [Atarax] 25 mg PO HS PRN 10/12/23 10/12/23 Allergies Allergy/AdvReac Type Severity Reaction Status Date / Time lisinopril Allergy Anaphylaxis Verified 10/12/23 16:29 tramadol Allergy Anaphylaxis Verified 10/12/23 16:29 Review of Systems ROS Other: All systems not noted in ROS Statement are negative. <Jimmie Agosto - Last Filed: 10/12/23 13:47> ROS Other: All systems not noted in ROS Statement are negative. <Trever Peña - Last Filed: 10/12/23 18:12> ROS Statement: Those systems with pertinent positive or pertinent negative responses have been documented in the HPI. Past Medical History Past Medical History: Cancer, Diabetes Mellitus, Hypertension Additional Past Medical History / Comment(s): Hepatitis C, right parotid mass History of Any Multi-Drug Resistant Organisms: None Reported Past Surgical History: Appendectomy Additional Past Surgical History / Comment(s): partoid mass biopsy Past Anesthesia/Blood Transfusion Reactions: No Reported Reaction Past Psychological History: No Psychological Hx Reported Smoking Status: Current every day smoker Past Alcohol Use History: None Reported Past Drug Use History: None Reported - Past Family History Mother Family Medical History: No Reported History <Jimmie Agosto - Last Filed: 10/12/23 13:47> General Exam Limitations: no limitations General appearance: alert, in no apparent distress <Jimmie Agosto - Last Filed: 10/12/23 13:47> <Trever Peña - Last Filed: 10/12/23 18:12> - General Exam Comments Initial Comments: Visual Physical Exam Vital signs reviewed General: Well-appearing, nontoxic, no acute distress. Head: Normocephalic, atraumatic Eyes: PERRLA, EOMI ENT: Airway patent Chest: Nonlabored breathing Skin: No visual rash, normal skin tone Neuro: Alert and oriented 3 Musculoskeletal: No gross abnormalities (Jimmie Agosto) PHYSICAL EXAM: General Impression: Alert and oriented x3, not in acute distress HEENT: Normocephalic atraumatic, extra-ocular movements intact, pupils equal and reactive to light bilaterally, mucous membranes moist. Cardiovascular: Heart regular rate and rhythm Chest: Able to complete full sentences, no retractions, no tachypnea Abdomen: abdomen soft, non-tender, non-distended, no organomegaly Musculoskeletal: Pulses present and equal in all extremities, no peripheral edema Motor: no focal deficits noted Neurological: CN II-XII grossly intact, no focal motor or sensory deficits noted Skin: Intact with no visualized rashes, mild scleral icterus, no palmar icterus Psych: Normal affect and mood (Trever Peña) Course <Trever Peña - Last Filed: 10/12/23 18:12> Vital Signs 10/12/23 10/12/23 10/12/23 13:33 15:10 15:30 Temperature 97.7 F Pulse Rate 60 Respiratory 16 Rate Blood Pressure 129/76 122/94 122/94 O2 Sat by Pulse 99 Oximetry 10/12/23 10/12/23 15:44 16:00 Temperature 97.9 F Pulse Rate 59 L 59 L Respiratory 18 Rate Blood Pressure 120/61 120/61 O2 Sat by Pulse 95 93 L Oximetry - Reevaluation(s) Reevaluation #1: 10/12/23 15:57 My EKG interpretation: Ventricular rate 57, sinus bradycardia,. Interval 90, QRS 94, QTC 423. No TN prolongation, no QTC prolongation, no ST or T-wave changes noted. Overall, this EKG is unremarkable (Trever Peña) Medical Decision Making <Jimmie Agosto - Last Filed: 10/12/23 13:47> - Lab Data Result diagrams: 10/12/23 13:53 10/12/23 13:53 <Dallas Peñassjerman Foster - Last Filed: 10/12/23 18:12> - Medical Decision Making I completed the quick note portion of this chart signed Jimmie Agosto PA-C (Jimmie Agosto) Was pt. sent in by a medical professional or institution ([employer], PROP MAKING SUPERVISOR, urgent care, hospital, or alf...) When possible be specific @ -By primary care physician Did you speak to anyone other than the patient for history (EMS, parent, family, police, friend...)? What history was obtained from this source @ -Family member At the bedside provides history along with patient Did you review nursing and triage notes (agree or disagree)? Why? @ -I reviewed and agree with nursing and triage notes Were old charts reviewed (outside hosp., previous admission, EMS record, old EKG, old radiological studies, urgent care reports/EKG's, alf records)? Report findings @ -No old charts were reviewed Differential Diagnosis (chest pain, altered mental status, abdominal pain women, abdominal pain men, vaginal bleeding, musculoskeletal, weakness, fever, dyspnea, syncope, headache, dizziness, GI bleed, back pain, seizure, CVA, p alpatations, mental health)? @ -Differential Weakness: Hypoglycemia, shock, sepsis, hyponatremia, anemia, infection, OH, ETOH, adverse medicine reaction, overdose, stroke, this is not meant to be an all-inclusive list. EKG interpreted by me (3pts min.). @ -None done X-rays interpreted by me (1pt min.). @ -X-ray of The abdomen shows no acute processes. Chest x-ray shows no acute processes. CT interpreted by me (1pt min.). @ -None done U/S interpreted by me (1pt. min.). @ -None done What testing was considered but not performed or refused? (CT, X-rays, U/S, labs)? Why? @ -None What meds were considered but not given or refused? Why? @ -None Did you discuss the management of the patient with other professionals (professionals i.e. [employer], PROP MAKING SUPERVISOR, lab, RT, psych nurse, social research assistant, box office attendant, teacher, air antisubmarine officer, cyanide case hardener)? Give summary @ -Case discussed with hospitalist for admission Was smoking cessation discussed for >3mins.? @ -No Was critical care preformed (if so, how long)? @ -No Were there social determinants of health that impacted care today? How? (Homelessness, low income, unemployed, alcoholism, drug addiction, transportation, low edu. Level, literacy, decrease access to med. care, fci, rehab)? @ -No Was there de-escalation of care discussed even if they declined (Discuss DNR or withdrawal of care, Hospice)? DNR status @ -No What co-morbidities impacted this encounter? (DM, HTN, Smoking, COPD, CAD, Cancer, CVA, ARF, Chemo, Hep., AIDS, mental health diagnosis, sleep apnea, morbid obesity)? @ -None Was patient admitted / discharged? Hospital course, mention meds given and route, prescriptions, significant lab abnormalities, going to OR and other pertinent info. @ -68 y Old female sent in by primary care physician for jaundice. She has known history of liver cancer. Vital signs upon arrival are within acceptable limits. Laboratory evaluation is within acceptable limits. She does have expected elevated bilirubin levels of 3.9. She does have a non-gap acidosis secondary to dehydration. Urinalysis shows white blood cells however conta minated specimen. Imaging studies negative. Patient will be admitted observation for hydration. GI consulted per hospitalist request. Undiagnosed new problem with uncertain prognosis? @ -No Drug Therapy requiring intensive monitoring for toxicity (Heparin, Nitro, Insulin, Cardizem)? @ -No Were any procedures done? @ -No Diagnosis/symptom? Acute, or Chronic, or Acute on Chronic? Uncomplicated (without systemic symptoms) or Complicated (systemic symptoms)? @ -New onset jaundice, known liver cancer Side effects of treatment? @ -No Exacerbation, Progression, or Severe Exacerbation? @ -No Poses a threat to life or bodily function? How? (Chest pain, [place], OH, pneumonia, PE, COPD, DKA, ARF, appy, cholecystitis, CVA, Diverticulitis, Homicidal, Suic idal, threat to staff... and all critical care pts) @ -yes (Trever Peña) - Lab Data Lab Results 10/12/23 10/12/23 10/12/23 Range/Units 13:53 13:53 13:53 WBC 7.7 (3.8-10.6) k/uL RBC 3.23 L (3.80-5.40) m/uL Hgb 8.8 L (11.4-16.0) gm/dL Hct 29.3 L (34.0-46.0) % MCV 90.7 (80.0-100.0) fL MCH 27.4 (25.0-35.0) pg MCHC 30.2 L (31.0-37.0) g/dL RDW 22.9 H (11.5-15.5) % Plt Count 342 (150-450) k/uL MPV 9.4 Neutrophils % 74 % Lymphocytes % 18 % Monocytes % 3 % Eosinophils % 4 % Basophils % 0 % Neutrophils # 5.7 (1.3-7.7) k/uL Lymphocytes # 1.3 (1.0-4.8) k/uL Monocytes # 0.2 (0-1.0) k/uL Eosinophils # 0.3 (0-0.7) k/uL Basophils # 0.0 (0-0.2) k/uL Hypochromasia Marked Poikilocytosis Slight Anisocytosis Moderate Microcytosis Slight Macrocytosis Slight PT (10.0-12.5) sec INR (<1.2) APTT (22.0-30.0) sec Sodium 145 (137-145) mmol/L Potassium 3.8 (3.5-5.1) mmol/L Chloride 114 H (98-107) mmol/L Carbon Dioxide 16 L (22-30) mmol/L Anion Gap 15 mmol/L BUN 17 (7-17) mg/dL Creatinine 0.92 (0.52-1.04) mg/dL Est GFR (CKD-EPI)AfAm 73 (>60 ml/min/1.73 sqM) Est GFR (CKD-EPI)NonAf 64 (>60 ml/min/1.73 sqM) Glucose 108 H (74-99) mg/dL Plasma Lactic Acid Michele 1.3 (0.7-2.0) mmol/L Calcium 9.1 (8.4-10.2) mg/dL Total Bilirubin 3.9 H (0.2-1.3) mg/dL Conjugated Bilirubin (0.0-0.3) mg/dL Unconjugated Bilirubin (0.0-1.1) mg/dL Delta Bilirubin (0.0-0.2) mg/dL AST 167 H (14-36) U/L ALT 106 H (4-34) U/L Alkaline Phosphatase 437 H (38-126) U/L Troponin I (0.000-0.034) ng/mL Total Protein 7.6 (6.3-8.2) g/dL Albumin 3.7 (3.5-5.0) g/dL Amylase 50 (30-110) U/L Lipase 76 (23-300) U/L Urine Color Urine Appearance (Clear) Urine pH (5.0-8.0) Ur Specific [place] (1.001-1.035) Urine Protein (Negative) Urine Glucose (UA) (Negative) Urine Ketones (Negative) Urine Blood (Negative) Urine Nitrite (Negative) Urine Bilirubin (Negative) Urine Urobilinogen (<2.0) mg/dL Ur Leukocyte Esterase (Negative) Urine RBC (0-5) /hpf Urine WBC (0-5) /hpf Ur Squamous Epith Cells (0-4) /hpf Urine Bacteria (None) /hpf Hyaline Casts (0-2) /lpf Urine Mucus (None) /hpf 10/12/23 10/12/23 10/12/23 Range/Units 13:53 14:52 14:53 WBC (3.8-10.6) k/uL RBC (3.80-5.40) m/uL Hgb (11.4-16.0) gm/dL Hct (34.0-46.0) % MCV (80.0-100.0) fL MCH (25.0-35.0) pg MCHC (31.0-37.0) g/dL RDW (11.5-15.5) % Plt Count (150-450) k/uL MPV Neutrophils % % Lymphocytes % % Monocytes % % Eosinophils % % Basophils % % Neutrophils # (1.3-7.7) k/uL Lymphocytes # (1.0-4.8) k/uL Monocytes # (0-1.0) k/uL Eosinophils # (0-0.7) k/uL Basophils # (0-0.2) k/uL Hypochromasia Poikilocytosis Anisocytosis Microcytosis Macrocytosis PT (10.0-12.5) sec INR (<1.2) APTT (22.0-30.0) sec Sodium (137-145) mmol/L Potassium (3.5-5.1) mmol/L Chloride (98-107) mmol/L Carbon Dioxide (22-30) mmol/L Anion Gap mmol/L BUN (7-17) mg/dL Creatinine (0.52-1.04) mg/dL Est GFR (CKD-EPI)AfAm (>60 ml/min/1.73 sqM) Est GFR (CKD-EPI)NonAf (>60 ml/min/1.73 sqM) Glucose (74-99) mg/dL Plasma Lactic Acid Michele (0.7-2.0) mmol/L Calcium (8.4-10.2) mg/dL Total Bilirubin 3.8 H (0.2-1.3) mg/dL Conjugated Bilirubin 0.6 H (0.0-0.3) mg/dL Unconjugated Bilirubin 0.9 (0.0-1.1) mg/dL Delta Bilirubin 2.3 H (0.0-0.2) mg/dL AST (14-36) U/L ALT (4-34) U/L Alkaline Phosphatase (38-126) U/L Troponin I <0.012 (0.000-0.034) ng/mL Total Protein (6.3-8.2) g/dL Albumin (3.5-5.0) g/dL Amylase (30-110) U/L Lipase (23-300) U/L Urine Color Evans Urine Appearance Cloudy H (Clear) Urine pH 6.0 (5.0-8.0) Ur Specific [place] 1.022 (1.001-1.035) Urine Protein 1+ H (Negative) Urine Glucose (UA) Negative (Negative) Urine Ketones Negative (Negative) Urine Blood Negative (Negative) Urine Nitrite Negative (Negative) Urine Bilirubin 2+ H (Negative) Urine Urobilinogen >12.0 (<2.0) mg/dL Ur Leukocyte Esterase Large H (Negative) Urine RBC 2 (0-5) /hpf Urine WBC 29 H (0-5) /hpf Ur Squamous Epith Cells 11 H (0-4) /hpf Urine Bacteria Rare H (None) /hpf Hyaline Casts 28 H (0-2) /lpf Urine Mucus Rare H (None) /hpf 11/29/23 Range/Units 16:41 WBC (3.8-10.6) k/uL RBC (3.80-5.40) m/uL Hgb (11.4-16.0) gm/dL Hct (34.0-46.0) % MCV (80.0-100.0) fL MCH (25.0-35.0) pg MCHC (31.0-37.0) g/dL RDW (11.5-15.5) % Plt Count (150-450) k/uL MPV Neutrophils % % Lymphocytes % % Monocytes % % Eosinophils % % Basophils % % Neutrophils # (1.3-7.7) k/uL Lymphocytes # (1.0-4.8) k/uL Monocytes # (0-1.0) k/uL Eosinophils # (0-0.7) k/uL Basophils # (0-0.2) k/uL Hypochromasia Poikilocytosis Anisocytosis Microcytosis Macrocytosis PT 12.4 (10.0-12.5) sec INR 1.2 H (<1.2) APTT 19.3 L (22.0-30.0) sec Sodium (137-145) mmol/L Potassium (3.5-5.1) mmol/L Chloride (98-107) mmol/L Carbon Dioxide (22-30) mmol/L Anion Gap mmol/L BUN (7-17) mg/dL Creatinine (0.52-1.04) mg/dL Est GFR (CKD-EPI)AfAm (>60 ml/min/1.73 sqM) Est GFR (CKD-EPI)NonAf (>60 ml/min/1.73 sqM) Glucose (74-99) mg/dL Plasma Lactic Acid Michele (0.7-2.0) mmol/L Calcium (8.4-10.2) mg/dL Total Bilirubin (0.2-1.3) mg/dL Conjugated Bilirubin (0.0-0.3) mg/dL Unconjugated Bilirubin (0.0-1.1) mg/dL Delta Bilirubin (0.0-0.2) mg/dL AST (14-36) U/L ALT (4-34) U/L Alkaline Phosphatase (38-126) U/L Troponin I (0.000-0.034) ng/mL Total Protein (6.3-8.2) g/dL Albumin (3.5-5.0) g/dL Amylase (30-110) U/L Lipase (23-300) U/L Urine Color Urine Appearance (Clear) Urine pH (5.0-8.0) Ur Specific [place] (1.001-1.035) Urine Protein (Negative) Urine Glucose (UA) (Negative) Urine Ketones (Negative) Urine Blood (Negative) Urine Nitrite (Negative) Urine Bilirubin (Negative) Urine Urobilinogen (<2.0) mg/dL Ur Leukocyte Esterase (Negative) Urine RBC (0-5) /hpf Urine WBC (0-5) /hpf Ur Squamous Epith Cells (0-4) /hpf Urine Bacteria (None) /hpf Hyaline Casts (0-2) /lpf Urine Mucus (None) /hpf Disposition <Jimmie Agosto - Last Filed: 10/12/23 13:47> Decision Time: 18:12 <Trever Peña - Last Filed: 10/12/23 18:12> Clinical Impression: Jaundice Disposition: ADMITTED IP TO THIS HOSP Condition: Fair Referrals: Faby Loving MD [Primary Care Provider] - 1-2 days
[2023-10-12 14:16] LABS: ALT 106 U/L (4-34); AST 167 U/L (14-36); African American GFR (CKD) 73 (>60 ml/min/1.73 sqM); Albumin 3.7 g/dL (3.5-5.0); Alkaline Phosphatase 437 U/L (38-126); Amylase 50 U/L (30-110); Anion Gap 15 mmol/L; Blood Urea Nitrogen 17 mg/dL (7-17); Calcium 9.1 mg/dL (8.4-10.2); Carbon Dioxide 16 mmol/L (22-30); Chloride 114 mmol/L (98-107); Glucose 108 mg/dL (74-99); Lipase 76 U/L (23-300); Non-African American GFR(CKD) 64 (>60 ml/min/1.73 sqM); Potassium 3.8 mmol/L (3.5-5.1); Sodium 145 mmol/L (137-145); Total Bilirubin 3.9 mg/dL (0.2-1.3); Total Protein 7.6 g/dL (6.3-8.2)
[2023-10-12 14:26] LABS: Anisocytosis Moderate; Basophils % (A) 0 %; Eosinophils # (A) 0.3 k/uL (0-0.7); Eosinophils % (A) 4 %; HCT 29.3 % (34.0-46.0); HGB 8.8 gm/dL (11.4-16.0); Hypochromasia Marked; Lymphocytes # (A) 1.3 k/uL (1.0-4.8); Lymphocytes % (A) 18 %; MCH 27.4 pg (25.0-35.0); MCHC 30.2 g/dL (31.0-37.0); MCV 90.7 fL (80.0-100.0); Macrocytosis Slight; Mean Platelet Volume 9.4; Microcytosis Slight; Monocytes # (A) 0.2 k/uL (0-1.0); Monocytes % (A) 3 %; Neutrophils # (A) 5.7 k/uL (1.3-7.7); Neutrophils % (A) 74 %; Platelet Count 342 k/uL (150-450); Poikilocytosis Slight; RBC 3.23 m/uL (3.80-5.40); RDW 22.9 % (11.5-15.5); WBC 7.7 k/uL (3.8-10.6)
[2023-10-12 15:01] LABS: Bilirubin, Conjugated 0.6 mg/dL (0.0-0.3); Bilirubin, Delta 2.3 mg/dL (0.0-0.2); Bilirubin,Unconjugated 0.9 mg/dL (0.0-1.1); Total Bilirubin 3.8 mg/dL (0.2-1.3)
[2023-10-12 15:14] LABS: Appearance,Urine Cloudy (Clear); Bacteria,Urine Rare /hpf; Bilirubin,Urine 2+ (Negative); Blood,Urine Negative (Negative); Color,Urine Orange; Glucose,Urine (UA) Negative (Negative); Hyaline Casts,Urine 28 /lpf (0-2); Ketones,Urine Negative (Negative); Leukocyte Esterase,Urine Large (Negative); Mucus,Urine Rare /hpf; Nitrite,Urine Negative (Negative); Protein,Urine 1+ (Negative); RBC,Urine 2 /hpf (0-5); Specific Gravity,Urine 1.022 (1.001-1.035); Squamous Epithelial Cell,Urine 11 /hpf (0-4); Urobilinogen,Urine >12.0 mg/dL (<2.0); WBC,Urine 29 /hpf (0-5)
--- NOTE | 2023-10-12 15:24 | XR ---
EXAMINATION TYPE: XR chest 2V DATE OF EXAM: 10/12/2023 COMPARISON: NONE HISTORY: Shortness of breath with exertion. TECHNIQUE: Frontal and lateral views of the chest are obtained. FINDINGS: There is no focal air space opacity, pleural effusion, or pneumothorax seen. The cardiac silhouette size is within normal limits. The osseous structures are intact. IMPRESSION: No acute cardiopulmonary process.
[2023-10-12] MEDS ORDERED: SODIUM CHLORIDE 0.9% 500 ML 500 ML IV STA (16:25)
--- NOTE | 2023-10-12 16:25 | XR ---
2 view abdomen. DATE: 10/12/2023. COMPARISON: None available. MEDICAL HISTORY: Constipation and jaundice. IMPRESSION: The bowel gas pattern is nonobstructive. No definitive abnormal mass effect or suspicious calcifications are seen. There is no free air under the diaphragm.
[2023-10-12 17:28] LABS: INR 1.2 (<1.2); Prothrombin Time 12.4 sec (10.0-12.5)
[2023-10-12 17:29] LABS: Partial Thromboplastin Time 19.3 sec (22.0-30.0)
[2023-10-12] MEDS ORDERED: NALOXONE 0.4 MG/ML 1 ML VIAL IV PRN (18:07)
[2023-10-12] MEDS: SODIUM CHLORIDE 0.9% 1,000 ML IV SCH (19:18)
--- NOTE | 2023-10-12 20:34 | HP ---
HISTORY AND PHYSICAL CHIEF COMPLAINT: Jaundice, weakness, and abdominal distention. HISTORY OF PRESENT ILLNESS: This is a 68-year-old woman with a past medical history of hepatitis C, lastly evaluated at [facility] for possible malignancy, no associated issues. Apparently, the patient has abdominal distention, weakness, and jaundice. The patient was evaluated by Dr. Faby Loving, and the patient was referred to [facility]. Currently, the patient is keen on exploring the possibility of having an opinion from the local quality assurance tech/oncologist also. There is no history of any fever, rigor, or chills. PAST MEDICAL HISTORY: Reviewed includes CVA and hepatitis C. HOME MEDICATIONS: Reviewed include metformin. Doses and rest of the medications are noted. They are not confirmed yet. ALLERGIES: Lisinopril. FAMILY HISTORY: No history of heart disease or strokes in the family. SOCIAL HISTORY: Smoking. REVIEW OF SYSTEMS: Fourteen-point review is negative except as mentioned earlier. PHYSICAL EXAMINATION: VITAL SIGNS: Pulse is 60, blood pressure 109/76, respirations 16. HEENT: Conjunctivae are icteric. Oral mucosa is icteric. NECK: No jugular venous distention. CARDIOVASCULAR: S1 and S2 muffled. RESPIRATORY: Few scattered rhonchi and crackles. ABDOMEN: Soft. Obese. Ascites present. LEGS: No edema. No swelling. NERVOUS SYSTEM: No focal deficits. SKIN: No ulcers or rashes. JOINTS: No active deforming arthropathy. LABORATORY DATA: Reviewed. Bilirubin is 3.9. ASSESSMENT: 1. Acute hepatitis, possibly secondary to hepatitis C. 2. Rule out hepatocellular malignancy. 3. Possible urinary tract infection. 4. History of diabetes mellitus, type 2. 5. History of right parotid mass. 6. History of nicotine dependence. RECOMMENDATIONS AND DISCUSSION: In this 68-year-old woman presented with multiple complex medical issues, we will monitor the patient closely. We will continue with current medications. Repeat labs. Hematology/Oncology evaluation. Gastroenterology evaluation. Otherwise, symptomatic treatment will be done. I would also recommend a CT scan of the abdomen and pelvis to complete the workup. Prognosis is guarded. Further recommendations to follow. See orders for details. MMODL / IJN: [id number] /
[2023-10-12] MEDS ORDERED: ACETAMINOPHEN TAB 500 MG TAB PO PRN (23:33)
[2023-10-12] MEDS: HYDROcodone/APAP 5-325MG 1 EACH TAB PO PRN (23:43)
[2023-10-13 05:04] LABS: Glucose,Whole Blood 110 mg/dL (70-110)
[2023-10-13 07:09] LABS: Glucose,Whole Blood 92 mg/dL (70-110)
[2023-10-13] MEDS: INSULIN DETEMIR (LEVEMIR) 100 UNIT/ML SYR SQ SCH (08:54)
[2023-10-13] MEDS ORDERED: PIOGLITAZONE 30 MG TAB PO SCH (09:00)
[2023-10-13] MEDS: ASPIRIN 81 MG PO SCH (09:30)
[2023-10-13] MEDS: FAMOTIDINE 20 MG TAB PO SCH (09:30)
[2023-10-13] MEDS: METOPROLOL TARTRATE 25 MG TAB PO SCH (09:30)
[2023-10-13] MEDS: HYDROcodone/APAP 5-325MG 1 EACH TAB PO PRN ×2 (09:31→19:40)
[2023-10-13 11:23] LABS: ALT 102 U/L (4-34); AST 160 U/L (14-36); African American GFR (CKD) 89 (>60 ml/min/1.73 sqM); Albumin 3.2 g/dL (3.5-5.0); Albumin/Globulin Ratio 0.9; Alkaline Phosphatase 401 U/L (38-126); Blood Urea Nitrogen 15 mg/dL (7-17); Calcium 8.7 mg/dL (8.4-10.2); Chloride 114 mmol/L (98-107); Globulin 3.7 g/dL; Glucose 105 mg/dL (74-99); Non-African American GFR(CKD) 78 (>60 ml/min/1.73 sqM); Sodium 145 mmol/L (137-145); Total Bilirubin 3.5 mg/dL (0.2-1.3); Total Protein 6.9 g/dL (6.3-8.2)
[2023-10-13 11:45] LABS: Anisocytosis Moderate; HCT 28.1 % (34.0-46.0); HGB 8.2 gm/dL (11.4-16.0); Hypochromasia Marked; MCH 27.3 pg (25.0-35.0); MCHC 29.3 g/dL (31.0-37.0); MCV 93.3 fL (80.0-100.0); Macrocytosis Slight; Mean Platelet Volume 10.2; Platelet Count 275 k/uL (150-450); Poikilocytosis Slight; RBC 3.02 m/uL (3.80-5.40); RDW 22.9 % (11.5-15.5); WBC 7.1 k/uL (3.8-10.6)
[2023-10-13 11:56] LABS: Glucose,Whole Blood 96 mg/dL (70-110)
[2023-10-13 12:23] LABS: Anion Gap 15 mmol/L; Carbon Dioxide 16 mmol/L (22-30)
[2023-10-13] MEDS ORDERED: IOPAMIDOL CONTRAST (ORAL USE) VIAL PO PRN (12:51)
[2023-10-13 14:32] LABS: Basophils # (M) 0.07 k/uL (0-0.2); Eosinophils # (M) 0.28 k/uL (0-0.7); Lymphocytes # (M) 0.92 k/uL (1.0-4.8); Monocytes # (M) 0.07 k/uL (0-1.0); Neutrophils # (M) 5.75 k/uL (1.3-7.7); Neutrophils % (M) 81 %; Nucleated Red Blood Cells 0 /100 WBC (0-0); Total Cells Counted 100
[2023-10-13 14:33] LABS: Target Cells Present
--- NOTE | 2023-10-13 15:02 | P.CONS ---
History of Present Illness - Reason for Consult Consult date: 10/13/23 Jaundice Requesting physician: Trveer Peña - Chief Complaint Abnormal labs - History of Present Illness This is a 68-year-old -[place] female who presented to the emergency department directed by her PCP for liver issues. She has a past medical history including hepatitis C, former smoker, diabetes mellitus, hypertension, and advanced unresectable hepatocellular carcinoma. Patient was diagnosed with hepatitis C she states about 20 years ago was initially treated however first treatment did not work. States that she did then follow with Dr. Vu for t reatment she believes in 2017 and 2018 and states that hepatitis C was resolved. Apparently patient had some imaging done back in June of this year and had a CT of the abdomen and pelvis that showed multiple liver lesions. Her PCP sent her down to [facility] in [place] hepatologists. States she followed there they did a liver biopsy and was told that she did have liver cancer. She was then set up with oncology and saw Dr. Delvalle on 10/04/2023. They discussed treatment options for advanced on resectable hepatocellular carcinoma. Patient states unfortunately transportation is an issue and she will not be able to follow up. She has no local oncologist at this time. On admission she was noted to be jaundice, LFTs are elevated. She states she has been noticing her urine getting darker as well as her skin turning yellow. She states she has some abdominal discomfort, no abdominal distention. She denies any nausea or vomiting. States that she has been ove rall just feeling not well. Abdominal x-ray reports none obstructive gas pattern, with no acute findings. Labs WBC 7.1 hemoglobin 8.2 hematocrit 28 platelet count 275,009 or 1.2 sodium 145 potassium 4.0 BUN 15 creatinine 0.78 total bilirubin 3.5 AST 160 ALT of 102 alkaline phosphatase 401 Review of Systems REVIEW OF SYSTEMS: CARDIOPULMONARY: No chest pain or shortness of breath. Gastrointestinal: Mild abdominal discomfort. No nausea or vomiting. No hematemesis, coffee-ground emesis. No rectal bleeding, or melena. GENITOURINARY: No dysuria or hematuria. MUSCULOSKELETAL: Reports normal range of motion. SKIN: No rashes. No jaundice. ENDOCRINE: No chills, fevers. No excessive weight gain or loss. No polydipsia or polyuria. PSYCHIATRIC: Unremarkable. NEUROLOGY: No change in mental status. Denies dizziness, headache. ENT: Vision unremarkable. CONSTITUTIONAL: No recent weight loss. No fever, chills, night sweats. Generalized weakness. Past Medical History Past Medical History: Cancer, Diabetes Mellitus, Hypertension Additional Past Medical History / Comment(s): Hepatitis C, right parotid mass History of Any Multi-Drug Resistant Organisms: None Reported Past Surgical History: Appendectomy Additional Past Surgical History / Comment(s): partoid mass biopsy Past Anesthesia/Blood Transfusion Reactions: No Reported Reaction Past Psychological History: No Psychological Hx Reported Smoking Status: Current every day smoker Past Alcohol Use History: None Reported Past Drug Use History: None Reported Additional Drug Use History / Comment(s): smoker of 1 pack per day, states she has been trying to quit - Past Family History Mother Family Medical History: No Reported History Medications and Allergies Home Medications Medication Instructions Recorded Confirmed Type Atorvastatin [Lipitor] 10 mg PO HS 01/14/22 10/12/23 History Losartan Potassium 100 mg PO DAILY 01/14/22 10/12/23 History Metoprolol Tartrate [Lopressor] 25 mg PO DAILY 01/14/22 10/12/23 History Acetaminophen Tab [Tylenol Tab] 1,000 mg PO Q6HR PRN 01/22/22 10/12/23 History Aspirin [Adult Low Dose Aspirin EC] 81 mg PO DAILY 01/22/22 10/12/23 History HYDROcodone/APAP 5-325MG [Lefor 1 tab PO Q6HR PRN 10/12/23 10/12/23 History 5-325] Ibuprofen [Motrin Ib] 200 - 800 mg PO Q8H PRN 10/12/23 10/12/23 History Insulin Glargine,Hum.rec.anlog 10 units SQ DAILY 10/12/23 10/12/23 History [Lantus Solostar Pen] Naloxone HCl [Narcan] 4 mg NASAL DIRECTED PRN 10/12/23 10/12/23 History Pioglitazone [Actos] 30 mg PO DAILY 10/12/23 10/12/23 History amLODIPine [Norvasc] 5 mg PO DAILY 10/12/23 10/12/23 History hydrOXYzine HCL [Atarax] 25 mg PO HS PRN 10/12/23 10/12/23 History Allergies Allergy/AdvReac Type Severity Reaction Status Date / Time lisinopril Allergy Anaphylaxis Verified 10/12/23 16:29 tramadol Allergy Anaphylaxis Verified 10/12/23 16:29 Physical Exam Vitals: Vital Signs Temp Pulse Pulse Resp BP BP BP 10/13/23 07:53 98.7 F 81 18 127/63 10/13/23 07:35 98.5 F 70 24 108/63 10/13/23 04:22 98.1 F 74 17 138/73 10/13/23 02:00 64 18 124/75 10/12/23 23:27 72 18 124/75 10/12/23 21:00 66 120/78 10/12/23 20:00 65 121/55 10/12/23 19:00 67 120/61 10/12/23 18:00 67 120/61 10/12/23 16:00 59 L 120/61 10/12/23 15:44 97.9 F 59 L 18 120/61 10/12/23 15:30 122/94 10/12/23 15:10 122/94 10/12/23 13:33 97.7 F 60 16 129/76 Pulse Ox 10/13/23 07:53 96 10/13/23 07:35 95 10/13/23 04:22 94 L 10/13/23 02:00 98 10/12/23 23:27 94 L 10/12/23 21:00 95 10/12/23 20:00 94 L 10/12/23 19:00 94 L 10/12/23 18:00 96 10/12/23 16:00 93 L 10/12/23 15:44 95 10/12/23 15:30 10/12/23 15:10 10/12/23 13:33 99 Intake and Output 10/12/23 10/13/23 10/13/23 22:59 06:59 14:59 Intake Total 180 Balance 180 Intake: Oral 180 Other: Voiding Method Toilet Weight 94.347 kg General appearance: The patient is alert, oriented, appears in no acute distress. HET: Head is normocephalic and atraumatic. Conjunctiva pink. Sclera icteric. Neck: Supple without lymphadenopathy. Trachea midline. Heart: Regular. Lungs: Equal expansion, normal respiratory effort. Abdomen: Soft, nontender, hepatomegaly, nondistended with bowel sounds. No guarding or rigidity. Skin: No rashes. Jaundice. Extremities: Normal skin color and turgor. No pedal edema. Neurological: No focal deficits. Alert and oriented x3. Results CBC & Chem 7: 10/13/23 10:42 10/13/23 10:42 Labs: Abnormal Lab Results - Last 24 Hours (Table) 10/12/23 10/12/23 10/12/23 Range/Units 13:53 13:53 14:52 RBC 3.23 L (3.80-5.40) m/uL Hgb 8.8 L (11.4-16.0) gm/dL Hct 29.3 L (34.0-46.0) % MCHC 30.2 L (31.0-37.0) g/dL RDW 22.9 H (11.5-15.5) % INR (<1.2) APTT (22.0-30.0) sec Chloride 114 H (98-107) mmol/L Carbon Dioxide 16 L (22-30) mmol/L Glucose 108 H (74-99) mg/dL Total Bilirubin 3.9 H 3.8 H (0.2-1.3) mg/dL Conjugated Bilirubin 0.6 H (0.0-0.3) mg/dL Delta Bilirubin 2.3 H (0.0-0.2) mg/dL AST 167 H (14-36) U/L ALT 106 H (4-34) U/L Alkaline Phosphatase 437 H (38-126) U/L Urine Appearance (Clear) Urine Protein (Negative) Urine Bilirubin (Negative) Ur Leukocyte Esterase (Negative) Urine WBC (0-5) /hpf Ur Squamous Epith Cells (0-4) /hpf Urine Bacteria (None) /hpf Hyaline Casts (0-2) /lpf Urine Mucus (None) /hpf 10/12/23 10/12/23 Range/Units 14:53 16:41 RBC (3.80-5.40) m/uL Hgb (11.4-16.0) gm/dL Hct (34.0-46.0) % MCHC (31.0-37.0) g/dL RDW (11.5-15.5) % INR 1.2 H (<1.2) APTT 19.3 L (22.0-30.0) sec Chloride (98-107) mmol/L Carbon Dioxide (22-30) mmol/L Glucose (74-99) mg/dL Total Bilirubin (0.2-1.3) mg/dL Conjugated Bilirubin (0.0-0.3) mg/dL Delta Bilirubin (0.0-0.2) mg/dL AST (14-36) U/L ALT (4-34) U/L Alkaline Phosphatase (38-126) U/L Urine Appearance Cloudy H (Clear) Urine Protein 1+ H (Negative) Urine Bilirubin 2+ H (Negative) Ur Leukocyte Esterase Large H (Negative) Urine WBC 29 H (0-5) /hpf Ur Squamous Epith Cells 11 H (0-4) /hpf Urine Bacteria Rare H (None) /hpf Hyaline Casts 28 H (0-2) /lpf Urine Mucus Rare H (None) /hpf Assessment and Plan (1) Hepatocellular carcinoma Narrative/Plan: 68-year-old -[place] female recently diagnosed with advanced unresectab le hepatocellular carcinoma who has been following up within the [facility] down in [place] and recently has seen an oncologist last week to discuss treatment options, however patient states she is having transportation issues and will not be able to continue to follow with oncology out of town. Apparently patient had recent blood work done and her PCP called her to come in for further evaluation. The history of hepatitis C treated. Patient is now becoming jaundice which is part of the hepatocellular carcinoma. Discussed with patient she will need to follow with oncology and we will await their recommendations for treatment. In the meantime CT abdomen and pelvis will be or dered to compare from previous CT done in June 2023. Current Visit: Yes Status: Acute Code(s): C22.0 - LIVER CELL CARCINOMA SNOMED Code(s): 032533114 (2) Jaundice Current Visit: Yes Status: Acute Code(s): R17 - UNSPECIFIED JAUNDICE SNOMED Code(s): 16238294 Plan: 1. Continue symptomatic and supportive care 2. CT abdomen and pelvis with contrast ordered 3. Patient may have consistent carbohydrate diet 4. Await recommendations from oncology 5. Daily CBC, CMP Thank you for this consultation, we will continue to follow. Dr. Wero Villa I agree with the dictator's note, documented as a scribe by Viri Caballero.
--- NOTE | 2023-10-13 15:31 | CT ---
EXAMINATION TYPE: CT abdomen w con DATE OF EXAM: 10/13/2023 COMPARISON: 07/13/2023. HISTORY: hepatocellular carcinoma CT DLP: 1308 mGycm Automated exposure control for dose reduction was used. TECHNIQUE: Helical acquisition of images was performed from the lung bases through the top of iliac crest to include entire abdomen. CONTRAST: Performed with Oral Contrast and with IV Contrast, patient injected with 100 mL of Isovue 370. FINDINGS: LUNG BASES: There is scattered centrilobular emphysematous changes throughout the visualized lung bas es. There are a few slightly enlarged paracardiac lymph nodes measuring up to 1.2 cm in short axis di ameter. LIVER/GB: The liver is enlarged measuring 25 cm in craniocaudal dimension. Marked nodular contour to the liver is compatible with cirrhosis. There is extensive masses seen throughout the liver which is likely related to the patient's history of hepatocellular carcinoma. The majority of the liver appear s to be replaced by hypoattenuating lesions. There is no true arterial phase of imaging so degree of enhancement is difficult to assess. There is a small amount of ascites also seen around the liver. Th ere appears to be thrombus within the main portal vein as well as to a lesser degree within the intra hepatic portal veins. PANCREAS: No significant abnormality is seen. SPLEEN: No significant abnormality is seen. ADRENALS: No significant abnormality is seen. KIDNEYS: No significant abnormality is seen. BOWEL: No significant abnormality is seen. LYMPH NODES: No significant abnormality is seen. OSSEOUS STRUCTURES: No significant abnormality is seen. FREE AIR: No free air is visualized. OTHER: IMPRESSION: 1. EXTENSIVE IRREGULAR MASSLIKE REPLACEMENT OF THE LIVER PARENCHYMA IS MOST LIKELY RELATED TO THE PAT IENT'S HISTORY OF HEPATOCELLULAR CARCINOMA. 2. CIRRHOSIS AND ASCITES.
--- NOTE | 2023-10-13 15:58 | PN ---
PROGRESS NOTE DATE OF SERVICE: 10/13/2023 SUBJECTIVE: This is a 68-year-old woman with a past medical history of hepatitis C, who was evaluated at [facility] for possible advanced hepatocellular carcinoma. The patient is complaining of weakness and jaundice. Since then, the patient is being closely monitored. Gastroenterology and as well as Hematology/Oncology evaluation in progress. CAT scan of the abdomen has been ordered. PAST MEDICAL HISTORY: Reviewed. REVIEW OF SYSTEMS: Fourteen-point review is negative except as mentioned earlier. CURRENT MEDICATIONS: Reviewed include [place]. Doses and rest of the medications are reviewed. PHYSICAL EXAMINATION: VITAL SIGNS: Pulse 63, blood pressure 105/53, respirations 20. HEENT: Conjunctivae are icteric. NECK: No jugular venous distention. CARDIOVASCULAR: S1 and S2 muffled. RESPIRATORY: Breath sounds diminished at the bases. ABDOMEN: Soft. Mild diffuse distention. LEGS: No edema. NERVOUS SYSTEM: Nonfocal. LABORATORY DATA: Hemoglobin 8.2. Rest of the labs are noted. Bilirubin is 3.5. ASSESSMENT: 1. Acute hepatitis, possibly secondary to hepatitis C and hepatocellular carcinoma. 2. Possible hepatocellular carcinoma. 3. Possible urinary tract infection, present on admission. 4. History of diabetes mellitus, type 2. 5. History of right parotid mass. 6. History of nicotine dependence. 7. Multiple complex medical issues. 8. Full code. RECOMMENDATIONS: Recommend to continue current medications. Continue symptomatic treatment. Otherwise, at this time, I would recommend empiric antibiotics and cultures. Closely follow with Gastroenterology and Hematology/Oncology. CAT scan of the abdomen. Repeat labs in the morning. Overall prognosis is guarded because of multiple complex medical issues. Further recommendations to follow. See orders for the details. Alpha-fetoprotein has been noted. MMODL / IJN: [id number] /
[2023-10-13 17:23] LABS: Glucose,Whole Blood 97 mg/dL (70-110)
[2023-10-13] MEDS: SODIUM CHLORIDE 0.9% 1,000 ML IV SCH (19:47)
[2023-10-13 20:11] LABS: Glucose,Whole Blood 140 mg/dL (70-110)
[2023-10-13] MEDS ORDERED: hydrOXYzine HCL 25 MG TAB PO PRN (21:00)
[2023-10-14 07:16] LABS: Glucose,Whole Blood 88 mg/dL (70-110)
[2023-10-14] MEDS: HYDROcodone/APAP 5-325MG 1 EACH TAB PO PRN ×2 (08:27→14:32)
[2023-10-14] MEDS: METOPROLOL TARTRATE 25 MG TAB PO SCH (08:28)
[2023-10-14] MEDS: FAMOTIDINE 20 MG TAB PO SCH (08:29)
[2023-10-14] MEDS: ASPIRIN 81 MG PO SCH (08:29)
[2023-10-14 08:34] LABS: HCT 24.4 % (37.2-50.0); HGB 7.6 g/dL (12.0-17.0); MCH 26.7 pg (27.0-32.0); MCHC 31.1 g/dL (32.0-37.0); MCV 85.6 FL (80.0-97.0); Mean Platelet Volume 12.2 FL (9.5-12.2); NRBC Per 100 WBC 0.04 X 10*3/uL (0.00-0.01); Platelet Count 329 X 10*3/uL (140-440); RBC 2.85 X 10*6/uL (4.10-5.60); WBC 8.05 X 10*3/uL (4.50-10.00)
[2023-10-14] MEDS: INSULIN DETEMIR (LEVEMIR) 100 UNIT/ML SYR SQ SCH (08:44)
[2023-10-14] MEDS ORDERED: LOSARTAN 50 MG TAB PO SCH (09:00)
[2023-10-14] MEDS ORDERED: amLODIPine 5 MG TAB PO SCH (09:00)
--- NOTE | 2023-10-14 09:26 | P.PN ---
Subjective Progress Note Date: 10/14/23 Principal diagnosis: unresectable advanced hepatocellular carcinoma This is a 68-year-old -Citizen Of [place] female who presented to the emergency department directed by her PCP for liver issues. She has a past medical history including hepatitis C, former smoker, diabetes mellitus, hypertension, and advanced unresectable hepatocellular carcinoma. Patient was diagnosed with h epatitis C she states about 20 years ago was initially treated however first treatment did not work. States that she did then follow with Dr. Vu for treatment she believes in 2016 and 2018 and states that hepatitis C was resolved. Apparently patient had some imaging done back in June of this year and had a CT of the abdomen and pelvis that showed multiple liver lesions. Her PCP sent her down to [facility] in [place] hepatologists. States she followed there they did a liver biopsy and was told that she did have liver cancer. She was then set up with oncology and saw Dr. Delvalle on 10/04/2023. They discussed treatment options for advanced on resectable hepato cellular carcinoma. Patient states unfortunately transportation is an issue and she will not be able to follow up. She has no local oncologist at this time. On admission she was noted to be jaundice, LFTs are elevated. She states she has been noticing her urine getting darker as well as her skin turning yellow. She states she has some abdominal discomfort, no abdominal distention. She denies any nausea or vomiting. States that she has been overall just feeling not well. Abdominal x-ray reports none obstructive gas pattern, with no acute findings. Labs WBC 7.1 hemoglobin 8.2 hematocrit 28 platelet count 275,009 or 1.2 sodium 145 potassium 4.0 BUN 15 creatinine 0.78 total bilirubin 3.5 AST 160 ALT of 102 alkaline phosphatase 401 10/14/2023 Patient seen and examined as a follow-up. No acute changes at this time. She denies any significant abdominal pain, nausea or vomiting. No shortness of breath or chest pain at this time.she had a CT of the abdomen and pelvis with contrast which reported extensive irregular masslike replacement of the liver parenchyma is most likely related to the patient's history of hepatocellular carcinoma. Cirrhosis and ascites. Objective - Vital Signs Vital signs: Vital Signs Temp 98.2 F 10/14/23 00:56 Pulse 66 10/14/23 00:56 Resp 17 10/14/23 00:56 BP 116/75 10/14/23 00:56 Pulse Ox 93 L 10/14/23 00:56 FiO2 Intake & Output 10/13/23 10/13/23 10/14/23 06:59 18:59 06:59 Intake Total 180 Output Total 300 Balance 180 -300 Weight 94.347 kg Intake: Oral 180 Output: Urine 300 Other: Voiding Method Toilet Toilet # Voids 4 - Exam General appearance: The patient is alert, oriented, appears in no acute distress. HET: Head is normocephalic and atraumatic. Conjunctiva pink. Sclera icteric. Neck: Supple without lymphadenopathy. Abdomen: Soft, nontender, nondistended with bowel sounds. No guarding or rigidity. Extremities: Normal skin color and turgor. No pedal edema Skin: No rashes, jaundice. Neurological: No focal deficits. Alert and oriented. - Labs CBC & Chem 7: 10/14/23 05:50 10/13/23 10:42 Labs: Abnormal Lab Results - Last 24 Hours (Table) 10/13/23 10/13/23 10/13/23 Range/Units 07:56 10:42 10:42 RBC 3.02 L (3.80-5.40) m/uL Hgb 8.2 L (11.4-16.0) gm/dL Hct 28.1 L (34.0-46.0) % MCHC 29.3 L (31.0-37.0) g/dL RDW 22.9 H (11.5-15.5) % Lymphocytes # (Manual) 0.92 L (1.0-4.8) k/uL Chloride 114 H (98-107) mmol/L Carbon Dioxide 16 L (22-30) mmol/L Glucose 105 H (74-99) mg/dL POC Glucose (mg/dL) (70-110) mg/dL Total Bilirubin 3.5 H (0.2-1.3) mg/dL AST 160 H (14-36) U/L ALT 102 H (4-34) U/L Alkaline Phosphatase 401 H (38-126) U/L Albumin 3.2 L (3.5-5.0) g/dL Tumor Marker AFP 262.00 H (0.00-7.90) ng/mL 10/13/23 Range/Units 20:08 RBC (3.80-5.40) m/uL Hgb (11.4-16.0) gm/dL Hct (34.0-46.0) % MCHC (31.0-37.0) g/dL RDW (11.5-15.5) % Lymphocytes # (Manual) (1.0-4.8) k/uL Chloride (98-107) mmol/L Carbon Dioxide (22-30) mmol/L Glucose (74-99) mg/dL POC Glucose (mg/dL) 140 H (70-110) mg/dL Total Bilirubin (0.2-1.3) mg/dL AST (14-36) U/L ALT (4-34) U/L Alkaline Phosphatase (38-126) U/L Albumin (3.5-5.0) g/dL Tumor Marker AFP (0.00-7.90) ng/mL Assessment and Plan (1) Hepatocellular carcinoma Narrative/Plan: 68-year-old -Citizen Of [place] female recently diagnosed with advanced unresectable hepatocellular carcinoma who has been following up within the [facility] down in [place] and recently has seen an oncologist last week to discuss treatment options, however patient states she is having transportation issues and will not be able to continue to follow with oncology out of town. Apparently patient had recent blood work done and her PCP called her to come in for further evaluation. The history of hepatitis C treated. Patient is now becoming jaundice which is part of the hepatocellular carcinoma. Discussed with patient she will need to follow with oncology and we will await their recommendations for treatment. In the meantime CT abdomen and pelvis will be ordered to compare from previous CT done in June [address]23. CT abdomen and pelvis with contrast completed and reports extensive irregular masslike replacement of the liver parenchyma was likely related to patient's history of hepatocellular carcinoma. Cirrhosis and ascites. No further workup by gastroenterology at this time. Patient to follow with oncology and their recommendations. Current Visit: Yes Status: Acute Code(s): C22.0 - LIVER CELL CARCINOMA SNOMED Code(s): 284251101 (2) Jaundice Current Visit: Yes Status: Acute Code(s): R17 - UNSPECIFIED JAUNDICE SNOMED Code(s): 79801069 Plan: 1. Continue symptomatic and supportive care 2. CT abdomen and pelvis with contrast ordered and reviewed 3. Patient may have consistent carbohydrate diet 4. No further workup per gastroenterology. Patient to follow with oncology. Await recommendations from oncology. Thank you for this consultation, the patient is cleared from gastroenterology for discharge. We will sign off at this time. Dr. Wero Villa I agree with the dictator's note, documented as a scribe by Viri Caballero.
[2023-10-14 09:31] LABS: Basophils # (M) 0 X 10*3/uL (0.00-0.10)
[2023-10-14 09:34] LABS: ALT 107 U/L (8-49); AST 174 U/L (13-35); Albumin 3.1 g/dL (3.8-4.9); Albumin/Globulin Ratio 0.97 Ratio (1.60-3.17); Alkaline Phosphatase 406 U/L (41-126); BUN/Creat Ratio 14.25 Ratio (12.00-20.00); Blood Urea Nitrogen 11.4 mg/dL (9.0-27.0); Calcium 8.8 mg/dL (8.7-10.3); Carbon Dioxide 17.1 mmol/L (21.6-31.8); Chloride 114 mmol/L (96-109); Globulin 3.2 g/dL (1.6-3.3); Glucose 80 mg/dL (70-110); Potassium 4.1 mmol/L (3.5-5.5); Sodium 143 mmol/L (135-145); Total Bilirubin 2.9 mg/dL (0.3-1.2); Total Protein 6.3 g/dL (6.2-8.2)
[2023-10-14 09:56] LABS: Anisocytosis (M) 3+; Eosinophils # (M) 0.16 X 10*3/uL (0.04-0.35); Hypochromasia (M) 2+; Lymphocytes # (M) 1.21 X 10*3/uL (0.90-5.00); Monocytes # (M) 0.48 X 10*3/uL (0.20-1.00); Neutrophils % (M) 77 %; Nucleated Red Blood Cells 1 /100 WBCS; Schistocytes 2+; Target Cells 3+
[2023-10-14 12:12] VITALS: BP 123/77; PULSE 61; RESP 20; TEMP 98.2
[2023-10-14 12:35] LABS: Glucose,Whole Blood 103 mg/dL (70-110)
--- NOTE | 2023-10-14 21:12 | P.DS ---
Providers Date of admission: 10/13/23 14:45 Expected date of discharge: 10/14/23 Attending physician: Doron Hammonds Consults: 10/12/23 18:07 Consult Physician Routine Consulting Provider: Radha Villa Consult Reason/Comments: jaundice Do you want consulting provider notified?: Yes 10/13/23 14:43 Consult Physician Routine Consulting Provider: Fer Durham Consult Reason/Comments: malignancy Do you want consulting provider notified?: Yes Primary care physician: Faby Loving Hospital Course: Final diagnosis Acute hepatitis, possibly secondary to hepatitis C and hepatocellular carcinoma Hepatocellular carcinoma was [facility] Possible acute urinary tract infection, present on admission History of hepatitis C, treated History of diabetes mellitus, type II History of right parotid mass Obesity with a BMI of 30.7 History of nicotine dependence GI prophylaxis DVT prophylaxis Full code Discharge disposition Patient is being discharged in a stable condition with guarded prognosis to home. Patient will follow-up with Dr. Shawn Hammonds in the outpatient setting upon discharge. Patient is to follow-up with oncology as well as GI outpatient as scheduled. Total time taken is greater than 35 minutes. Hospital course This is a 68-year-old female who was recently admitted increased weakness and jaundice with extensive history of advanced hepatocellular carcinoma and history of hepatitis C. Patient was following with Surjit Diehl although having difficulty with follow-up due to transportation and traveling and would like to establish with oncology and GI here. Patient was seen and evaluated by oncology as well as GI and is being scheduled for outpatient follow-up. Patient will undergo EGD next week with Dr. Allen TORRES in the outpatient setting. Patient tolerating diet and denies abdominal pain and will be going home today. Currently no reports of chest pain, shortness of breath, or palpitations. Patient is afebrile. No reports of nausea or vomiting and patient is tolerating diet. Patient will be discharged home today. Overall guarded prognosis Physical exam: Gen: This is a 68-year-old female who is awake, alert and oriented 3, well- developed, well-nourished, obese HEENT: Head is atraumatic, normocephalic. Pupils equal, round. Sclerae is anicteric. NECK: Supple. No JVD. No lymphadenopathy. No thyromegaly. LUNGS: Clear to auscultation. No wheezes or rhonchi. No intercostal retractions. HEART: Regular rate and rhythm. No murmur. ABDOMEN: Soft. Mildly distended. Bowel sounds are present. No masses. No tenderness. EXTREMITIES: No pedal edema. No calf tenderness. NEUROLOGICAL: Patient is awake, alert and oriented x3. Cranial nerves 2 through 12 are grossly intact. Please refer to medication reconciliation sheet for a list of medications. The impression and plan of care has been dictated by Jil Harry, Nurse Practitioner as directed. Dr. Cassius MD I have performed a history and examination and MDM of this patient, discussed the same with the dictator, and agree with the dictator's assessment and plan as written ,documented as a scribe. Based on total visit time, I have performed more than 50% of the visit. Patient Condition at Discharge: Fair Plan - Discharge Summary Discharge Rx Participant: No New Discharge Prescriptions: New Famotidine [Pepcid] 20 mg PO DAILY #30 tab Continue Losartan Potassium 100 mg PO DAILY hydrOXYzine HCL [Atarax] 25 mg PO HS PRN PRN Reason: Insomnia amLODIPine [Norvasc] 5 mg PO DAILY Naloxone HCl [Narcan] 4 mg NASAL DIRECTED PRN PRN Reason: Overdose HYDROcodone/APAP 5-325MG [[place] 5-325] 1 tab PO Q6HR PRN PRN Reason: Pain Insulin Glargine,Hum.rec.anlog [Lantus Solostar Pen] 10 units SQ DAILY Metoprolol Tartrate [Lopressor] 25 mg PO DAILY Acetaminophen Tab [Tylenol] 1,000 mg PO Q6HR PRN PRN Reason: Pain Pioglitazone [Actos] 30 mg PO DAILY Ibuprofen [Motrin Ib] 200 - 800 mg PO Q8H PRN PRN Reason: Pain Discontinued Atorvastatin [Lipitor] 10 mg PO HS Aspirin [Adult Low Dose Aspirin EC] 81 mg PO DAILY Discharge Medication List Losartan Potassium 100 mg PO DAILY 01/14/22 [History] Metoprolol Tartrate [Lopressor] 25 mg PO DAILY 01/14/22 [History] Acetaminophen Tab [Tylenol] 1,000 mg PO Q6HR PRN 01/22/22 [History] HYDROcodone/APAP 5-325MG [[place] 5-325] 1 tab PO Q6HR PRN 10/12/23 [History] Ibuprofen [Motrin Ib] 200 - 800 mg PO Q8H PRN 10/12/23 [History] Insulin Glargine,Hum.rec.anlog [Lantus Solostar Pen] 10 units SQ DAILY 10/12/23 [History] Naloxone HCl [Narcan] 4 mg NASAL DIRECTED PRN 10/12/23 [History] Pioglitazone [Actos] 30 mg PO DAILY 10/12/23 [History] amLODIPine [Norvasc] 5 mg PO DAILY 10/12/23 [History] hydrOXYzine HCL [Atarax] 25 mg PO HS PRN 10/12/23 [History] Famotidine [Pepcid] 20 mg PO DAILY #30 tab 10/14/23 [Rx] Follow up Appointment(s)/Referral(s): Fer Durham [STAFF PHYSICIAN] - 1 Week (please call the office to schedule a follow up appointment) Radha Villa MD [STAFF PHYSICIAN] - 10/19/23 ([facility] Upper Endoscopy (EGD) the hospital will call you for a time) Faby Loving MD [Primary Care Provider] - 10/28/23 2:00 pm Patient Instructions/Handouts: Famotidine (By mouth) Activity/Diet/Wound Care/Special Instructions: Activity Limited until follow-up Follow-up with GI outpatient Follow-up with oncology outpatient Follow-up with primary care provider on discharge Continue taking medications as prescribed Do not take aspirin 81 mg starting 10/15/2023 until after EGD completed. Do not eat or drink anything after midnight on 10/18/2023 for your scheduled EGD on 10/19/[address] Villa Discharge Disposition: HOME SELF-CARE
--- NOTE | 2023-10-15 10:26 | P.CONS ---
History of Present Illness - Reason for Consult Consult date: 10/14/23 liver cancer Requesting physician: Doron Hammonds - Chief Complaint abdominal pain - History of Present Illness Patient is a 68-year-old female with a significant history of hepatitis C and newly diagnosed liver cancer. Patient presented to the emergency room for abdominal pain. Upon admission CT abdomen revealed extensive irregular masslike replacement of the liver parenchyma. Cirrhosis and ascites. CBC revealed WBC 8.0, hemoglobin 7.6, platelets 329,000. Bilirubin and LFTs elevated. AFP elevated at 262. UA revealed possible UTI, patient started on Rocephin. Patient reports she is being worked up by Dr. Salcedo at [facility] and biopsy was positive for liver adenocarcinoma. Patient was given different options for treatment including palliative RT and systemic treatment and was explained patient this was not of curable intent but palliative intent, but due to patient's hepatitis C, recommended medications in most current literature were not tested on patients with hepatitis C and it is not known if medications could cause worsening of liver inflammation and underlying hepatitis C, so this is a risk she would have to take if she wanted to pursue treatment. It was also discussed that some of the medication regimens could increase risk of bleeding and she was recommended to undergo EGD prior to start of therapy if she wished to pursue treatment. This was discussed in detail with patient at todays visit, as well as prognosis with and without treatment. She states at this time she would wish to proceed with further testing and treatment and to establish care locally. Review of Systems 10 point ROS is negative except as stated in the HPI Past Medical History Past Medical History: Cancer, Diabetes Mellitus, Hypertension Additional Past Medical History / Comment(s): Hepatitis C, right parotid mass History of Any Multi-Drug Resistant Organisms: None Reported Past Surgical History: Appendectomy Additional Past Surgical History / Comment(s): partoid mass biopsy Past Anesthesia/Blood Transfusion Reactions: No Reported Reaction Past Psychological History: No Psychological Hx Reported Smoking Status: Current every day smoker Past Alcohol Use History: None Reported Past Drug Use History: None Reported Additional Drug Use History / Comment(s): smoker of 1 pack per day, states she has been trying to quit - Past Family History Mother Family Medical History: No Reported History Medications and Allergies Home Medications Medication Instructions Recorded Confirmed Type Losartan Potassium 100 mg PO DAILY 01/14/22 10/12/23 History Metoprolol Tartrate [Lopressor] 25 mg PO DAILY 01/14/22 10/12/23 History Acetaminophen Tab [Tylenol] 1,000 mg PO Q6HR PRN 01/22/22 10/12/23 History HYDROcodone/APAP 5-325MG [[place] 1 tab PO Q6HR PRN 10/12/23 10/12/23 History 5-325] Ibuprofen [Motrin Ib] 200 - 800 mg PO Q8H PRN 10/12/23 10/12/23 History Insulin Glargine,Hum.rec.anlog 10 units SQ DAILY 10/12/23 10/12/23 History [Lantus Solostar Pen] Naloxone HCl [Narcan] 4 mg NASAL DIRECTED PRN 10/12/23 10/12/23 History Pioglitazone [Actos] 30 mg PO DAILY 10/12/23 10/12/23 History amLODIPine [Norvasc] 5 mg PO DAILY 10/12/23 10/12/23 History hydrOXYzine HCL [Atarax] 25 mg PO HS PRN 10/12/23 10/12/23 History Famotidine [Pepcid] 20 mg PO DAILY #30 tab 10/14/23 Rx Allergies Allergy/AdvReac Type Severity Reaction Status Date / Time lisinopril Allergy Anaphylaxis Verified 10/12/23 16:29 tramadol Allergy Anaphylaxis Verified 10/12/23 16:29 Physical Exam Vitals: Vital Signs Temp Pulse Resp BP Pulse Ox 10/14/23 11:42 98.2 F 61 20 123/77 96 10/14/23 08:00 16 10/14/23 07:33 98.1 F 92 20 133/73 95 10/14/23 07:15 98.1 F 84 18 134/69 96 10/14/23 00:56 98.2 F 66 17 116/75 93 L Intake and Output 10/14/23 10/14/23 10/14/23 06:59 14:59 22:59 Output Total 300 Balance -300 Output: Urine 300 Other: Voiding Method Toilet # Voids 1 - Constitutional General appearance: no acute distress - EENT Eyes: EOMI ENT: hearing grossly normal - Respiratory Respiratory: bilateral: CTA - Cardiovascular Rhythm: regular Heart sounds: normal: S1, S2 - Gastrointestinal General gastrointestinal: soft, no tenderness - Integumentary Integumentary: jaundiced - Neurologic grossly intact - Psychiatric Psychiatric: A&O x's 3 Results CBC & Chem 7: 10/14/23 05:50 10/14/23 05:50 Labs: Abnormal Lab Results - Last 24 Hours (Table) 10/13/23 10/14/23 10/14/23 Range/Units 07:56 05:50 05:50 RBC 2.85 L (4.10-5.60) X 10*6/uL Hgb 7.6 L (12.0-17.0) g/dL Hct 24.4 L (37.2-50.0) % MCH 26.7 L (27.0-32.0) pg MCHC 31.1 L (32.0-37.0) g/dL RDW 24.0 H (11.5-14.5) % NRBC/100 WBC Diff 0.04 H (0.00-0.01) X 10*3/uL Hypochromasia (manual) 2+ A Anisocytosis (manual) 3+ A Target Cells 3+ A Schistocytes 2+ A Chloride 114 H (96-109) mmol/L Carbon Dioxide 17.1 L (21.6-31.8) mmol/L Total Bilirubin 2.9 H (0.3-1.2) mg/dL AST 174 H (13-35) U/L ALT 107 H (8-49) U/L Alkaline Phosphatase 406 H (41-126) U/L Albumin 3.1 L (3.8-4.9) g/dL Albumin/Globulin Ratio 0.97 L (1.60-3.17) Ratio Tumor Marker AFP 262.00 H (0.00-7.90) ng/mL CT scan - abdomen: report reviewed Assessment and Plan (1) Hepatocellular carcinoma Status: Acute Priority: High Code(s): C22.0 - LIVER CELL CARCINOMA SNOMED Code(s): 278985094 (2) Anemia Status: Acute Priority: Medium Code(s): D64.9 - ANEMIA, UNSPECIFIED SNOMED Code(s): 915913843 Plan: Hepatocellular carcinoma: -History of hepatitis C and newly diagnosed metastatic liver cancer -Bilirubin and LFTs elevated. AFP elevated at 262 -Upon admission, CT abdomen revealed extensive irregular masslike replacement of the liver parenchyma. Cirrhosis and ascites -Patient is being worked up by Dr. Salceod at [facility] and biopsy was positive for liver adenocarcinoma. Patient was given different options for treatment including palliative RT and systemic treatment and was explained to patient this was not of curable intent but palliative intent, but due to patient's hepatitis C, recommended medications in most current literature were not tested on patients with hepatitis C and it is not known if medications could cause worsening of liver inflammation and underlying hepatitis C, so this is a risk she would have to take if she wanted to pursue treatment. It was also discussed that some of the medication regimens could increase risk of bleeding and she was recommended to undergo EGD prior to start of therapy if she wished to pursue treatment. This was discussed in detail with patient at todays visit, as well as prognosis with and without treatment. She states at this time she would wish to proceed with further testing and treatment and to establish care locally -Spoke with GI team regarding EGD. Patient will be scheduled for outpt EGD on 10/19 -HCV RNA, quantitative ordered -Will request medical records from [facility] and schedule clinic f/u in the coming weeks to further discuss treatment options and goals of care Anemia: -CBC revealed normocytic hypochromic anemia. CBC revealed WBC 8.0, hemoglobin 7.6, platelets 329,000. -Anemia workup ordered Dr. Guerrierests: I have seen and examined pt, performed H&P, developed impression and plan of care. Discussed with dictator. Agree with documentation, dictated as a scribe.
== END 2023-10-14 16:40 | disposition home or self-care (01) ==
LOC: EC 13:20 → 5NMEDONC 18:07 → INTOOBSV 10-13 14:45 → OBSVTOIN 10-13 14:45 → UNDODISIN 10-14 16:40
PROVIDERS: ADMIT Hospitalist; ATTEND Hospitalist
DX: B17.9 Acute viral hepatitis, unspecified (principal); C22.0 Liver cell carcinoma; Z86.19 Personal history of other infectious and parasitic diseases; E11.9 Type 2 diabetes mellitus without complications; E66.9 Obesity, unspecified; Z68.30 Body mass index [BMI] 30.0-30.9, adult; I10 Essential (primary) hypertension; F17.210 Nicotine dependence, cigarettes, uncomplicated; D64.9 Anemia, unspecified; Z79.899 Other long term (current) drug therapy; Z79.82 Long term (current) use of aspirin; Z79.84 Long term (current) use of oral hypoglycemic drugs; Z79.4 Long term (current) use of insulin; Z88.8 Allergy status to other drugs, medicaments and biological substances
CPT/HCPCS: 96365; 96366; 99285; 36415; 93005; 80053 ×3; 82607; 82728; 82150; 82248; 82746; 83540; 83550; 83605; 83690; 84484; 85025 ×3; 85610; 85730; 81001; 82105; 87086; 71046; 74018; 74160; G0378 ×3; J0696 ×2; Q9967

== ENCOUNTER 2023-10-19 09:07 | Day surgery (SDC) | payer MEDICARE ==
[2023-10-19 09:57] LABS: Glucose,Whole Blood 93 mg/dL (70-110)
[2023-10-19] MEDS ORDERED: LACTATED RINGERS 1,000 ML IV ONE (10:02)
[2023-10-19 10:17] VITALS: TEMP 97.4
[2023-10-19] MEDS ORDERED: PROPOFOL 10 MG/ML 20 ML VIAL IV ONE (10:26)
[2023-10-19] MEDS ORDERED: LIDOCAINE 1% INJ 10MG/ML (20 ML MDV) ONE (10:26)
--- NOTE | 2023-10-19 10:37 | P.PCN ---
Date of Procedure: 10/19/23 Procedure(s) Performed: BRIEF HISTORY: Patient is a 68-year-old, pleasant, -[place] female scheduled for an upper endoscopy as a part of screening for esophageal varices that she does have history of liver cirrhosis/chronic hepannually diagnosed hepatocellular carcinoma. She is following with oncology. PROCEDURE PERFORMED: Esophagogastroduodenoscopy. PREOPERATIVE DIAGNOSIS: history of liver cirrhosis screening for esophageal varices . IV sedation per anesthesia. PROCEDURE: After informed consent was obtained, the patient was brought into the endoscopy unit. IV sedation was administered by Anesthesia under continuous monitoring. Initially the Olympus GIF-140 video endoscope was inserted into the mouth. Esophagus intubated without any difficulty. It was gradually advanced into the stomach and duodenum and carefully examined. The bulb and the second part of the duodenum appeared normal. The scope at this time was withdrawn to the stomach, adequately insufflated with air, and upon careful examination, mucosa of the antrum, mild gastritis. Mucosa of the body, cardia and the fun dus appeared normal. gastric varices identified. The scope was then withdrawn into the esophagus. The GE junction was located at 39 cm from the incisors. The esophagus appeared normal. There aaron small distal esophageal varices seend the patient tolerated the procedure well. IMPRESSION: 1. Small esophageal varices. 2. No evidence of gastric varices 3. Mild antral gastritis. RECOMMENDATIONS: The findings of this examination were discussed with the patas well as a family. She was advised to follow with oncology for management of hepatocellular carcinoma. Recommend repeat EGD in 3 years.
[2023-10-19] MEDS ORDERED: IV FLUID CONTINUATION 900 ML IV ONE (10:41)
[2023-10-19 11:29] VITALS: BP 134/61; PULSE 74; RESP 16
== END 2023-10-19 11:19 | disposition home or self-care (01) ==
LOC: ORWHC2ENDO 09:07
PROVIDERS: ATTEND Internal Medicine Gastroenterology
DX: K29.50 Unspecified chronic gastritis without bleeding (principal); I85.00 Esophageal varices without bleeding; I10 Essential (primary) hypertension; E11.9 Type 2 diabetes mellitus without complications; Z79.899 Other long term (current) drug therapy; Z87.891 Personal history of nicotine dependence
CPT/HCPCS: 43235; J2001; J2704

== ENCOUNTER → 2023-11-17 | Outpatient (CLI) | payer MEDICARE ==
--- NOTE | 2023-11-17 23:07 | US ---
EXAMINATION TYPE: US venous doppler duplex LE RT DATE OF EXAM: 11/17/2023 4:30 PM COMPARISON: NONE CLINICAL INDICATION: Female, 68 years old with history of [id number] SWELLING/MASS/LIMP RT LOWER LIMB; Rig ht leg swelling SIDE PERFORMED: Right TECHNIQUE: The lower extremity deep venous system is examined utilizing real time linear array sonog lashonda with graded compression, doppler sonography and color-flow sonography. VESSELS IMAGED: Common Femoral Vein Deep Femoral Vein Greater Saphenous Vein * Femoral Vein Popliteal Vein Small Saphenous Vein * Proximal Calf Veins (* superficial vessels) Right Leg: Negative for DVT Results called to Zuleima Valente at time of exam IMPRESSION: 1. Right lower extremity ultrasound negative for deep venous thrombosis.
== END | disposition home or self-care (01) ==
LOC: RADUSWWP 16:15
PROVIDERS: ATTEND Internal Medicine Hematology & Oncology
DX: R22.41 Localized swelling, mass and lump, right lower limb (principal)

== ENCOUNTER 2023-11-18 11:43 | Emergency (ER) | payer MEDICARE ==
--- NOTE | 2023-11-18 12:32 | ED ---
General Adult HPI - General Source: patient, RN notes reviewed Mode of arrival: ambulatory Limitations: no limitations <Jimmie Agosto - Last Filed: 11/18/23 12:30> <Preeti Pedersen - Last Filed: 11/18/23 21:41> - General Chief complaint: Recheck/Abnormal Lab/Rx Stated complaint: Fluid retention Time Seen by Provider: 11/18/23 12:30 - History of Present Illness Initial comments: 68-year-old female presents emergency Department with chief complaint of abdominal pain. Patient was seen by oncology yesterday was sent for ultrasound and paracentesis but the only had ultrasound ordered. Patient is here for paracentesis, pain relief. Patient states she has liver cancer (Jimmie Agosto) 5-year-old female with past medical history of liver cirrhosis, hepatocellular cancer who presents the emergency department requesting a paracentesis. She sees Dr. Schumacher and Jeanette valente. She was sent today for an ultrasound of her abdomen as she has been reporting to abdominal distention and shortness of breath. Ultrasound was performed. Patient was expecting also get a paracentesis. When this wasn't performed patient decided to come to the ER as she was told that she would have quicker results. She has never had a paracentesis before. She also reports to lower extremity swelling. Ultrasound of the leg had also been performed which did not demonstrate a DVT. Patient states that she is not taking any diuretics at this time. No fevers. No other alleviating, precipitating or modifying factors (Preeti Pedersen) - Related Data Home Medications Medication Instructions Recorded Confirmed RX: Losartan Potassium 100 mg PO DAILY 01/14/22 10/19/23 RX: Metoprolol Tartrate [Lopressor] 25 mg PO DAILY 01/14/22 10/19/23 RX: Acetaminophen Tab [Tylenol] 1,000 mg PO Q6HR PRN 01/22/22 10/19/23 RX: Ibuprofen [Motrin Ib] 200 - 800 mg PO Q8H PRN 10/12/23 10/19/23 RX: Insulin Glargine,Hum.rec.anlog 10 units SQ QAM 10/12/23 10/19/23 [Lantus Solostar Pen] RX: amLODIPine [Norvasc] 5 mg PO DAILY 10/12/23 10/19/23 RX: hydrOXYzine HCL [Atarax] 25 mg PO HS PRN 10/12/23 10/19/23 Previous Rx's Medication Instructions Recorded RX: Famotidine [Pepcid] 20 mg PO DAILY #30 tab 10/14/23 RX: Spironolactone 25 mg PO DAILY #7 tablet 11/18/23 Allergies Allergy/AdvReac Type Severity Reaction Status Date / Time lisinopril Allergy Anaphylaxis Verified 11/18/23 12:29 tramadol Allergy Anaphylaxis Verified 11/18/23 12:29 Review of Systems ROS Other: All systems not noted in ROS Statement are negative. <Jimmie Agosto - Last Filed: 11/18/23 12:30> ROS Other: All systems not noted in ROS Statement are negative. <Preeti Pedersen - Last Filed: 11/18/23 21:41> ROS Statement: Those systems with pertinent positive or pertinent negative responses have been documented in the HPI. Past Medical History Past Medical History: Cancer, Diabetes Mellitus, Hypertension Additional Past Medical History / Comment(s): Hepatitis C, metastatic liver cancer, ascities, cirrhosis, jaundice, recent UTI, IDDM type II, right parotid mass History of Any Multi-Drug Resistant Organisms: None Reported Past Surgical History: Appendectomy Additional Past Surgical History / Comment(s): Liver biopsy, parotid mass biopsy Past Anesthesia/Blood Transfusion Reactions: No Reported Reaction Past Psychological History: No Psychological Hx Reported Smoking Status: Former smoker Past Alcohol Use History: None Reported Past Drug Use History: None Reported - Past Family History Mother Family Medical History: No Reported History <Jimmie Agosto - Last Filed: 11/18/23 12:30> General Exam Limitations: no limitations <Jimmie Agosto - Last Filed: 11/18/23 12:30> - General Exam Comments Initial Comments: Visual Physical Exam Vital signs reviewed General: Well-appearing, nontoxic, no acute distress. Head: Normocephalic, atraumatic Eyes: PERRLA, EOMI ENT: Airway patent Chest: Nonlabored breathing Skin: No visual rash, normal skin tone Neuro: Alert and oriented 3 Musculoskeletal: No gross abnormalities (Jimmie Agosto) Course Vital Signs 11/18/23 11/18/23 12:27 13:46 Temperature 98.5 F Pulse Rate 86 90 Respiratory 20 20 Rate Blood Pressure 118/73 107/62 O2 Sat by Pulse 99 97 Oximetry Medical Decision Making <Jimmie Agosto M - Last Filed: 11/18/23 12:30> <SlavaPreeti Prisca - Last Filed: 11/18/23 21:41> - Medical Decision Making I completed the quick note portion of this chart signed Jimmie Agosto PA-C (Jimmie Agosto) Was pt. sent in by a medical professional or institution (, PA, SPANISH TEACHER, urgent care, hospital, or usp...) When possible be specific @ -No Did you speak to anyone other than the patient for history (EMS, parent, family, police, friend...)? What history was obtained from this source @ -No Did you review nursing and triage notes (agree or disagree)? Why? @ -I reviewed and agree with nursing and triage notes Were old charts reviewed (outside hosp., previous admission, EMS record, old EKG, old radiological studies, urgent care reports/EKG's, usp records)? Report findings @ -No old charts were reviewed Differential Diagnosis (chest pain, altered mental status, abdominal pain women, abdominal pain men, vaginal bleeding, weakness, fever, dyspnea, syncope, headache, dizziness, GI bleed, back pain, seizure, CVA, palpatations, mental health, musculoskeletal)? @ -not applicable EKG interpreted by me (3pts min.). @ -As above X-rays interpreted by me (1pt min.). @ -None done CT interpreted by me (1pt min.). @ -None done U/S interpreted by me (1pt. min.). @ -None done What testing was considered but not performed or refused? (CT, X-rays, U/S, labs)? Why? @ -None What meds were considered but not given or refused? Why? @ -None Did you discuss the management of the patient with other professionals (professionals i.e. XU Galvez, SPANISH TEACHER, lab, RT, psych nurse, social welfare clerk, salt grinder, teacher, aboriginal home school liaison officer, casework manager)? Give summary @ -No Was smoking cessation discussed for >3mins.? @ -No Was critical care preformed (if so, how long)? @ -No Were there social determinants of health that impacted care today? How? (Homel essness, low income, unemployed, alcoholism, drug addiction, transportation, low edu. Level, literacy, decrease access to med. care, snf, rehab)? @ -No Was there de-escalation of care discussed even if they declined (Discuss DNR or withdrawal of care, Hospice)? DNR status @ -No What co-morbidities impacted this encounter? (DM, HTN, Smoking, COPD, CAD, Cancer, CVA, ARF, Chemo, Hep., AIDS, mental health diagnosis, sleep apnea, morbid obesity)? @ -None Was patient admitted / discharged? Hospital course, mention meds given and route, prescriptions, significant lab abnormalities, going to OR and other pertinent info. @ -Upon arrival patient was placed in a swan 10. A thorough history and physical exam was performed. I did call and speak with radiology. The patient only has small ascites and therefore she is not a candidate for a paracentesis at this time. I called and spoke with Jeanette valente. Was agreeable that I can start the patient on spironolactone for her swelling. She recommends only a 7 day course. I informed the patient of this. This will be prescribed for 1 week. Patient is to follow up with oncology next week. Return for any new or worsening symptoms. Patient was agreeable to plan she was discharged in stable condition Undiagnosed new problem with uncertain prognosis? @ -No Drug Therapy requiring intensive monitoring for toxicity (Heparin, Nitro, Insulin, Cardizem)? @ -No Were any procedures done? @ -No Diagnosis/symptom? @ -default Acute, or Chronic, or Acute on Chronic? @ -default Uncomplicated (without systemic symptoms) or Complicated (systemic symptoms)? @ -default Side effects of treatment? @ -No Exacerbation, Progression, or Severe Exacerbation? @ -No Poses a threat to life or bodily function? How? (Chest pain, [place], [place], pneumonia, PE, COPD, DKA, ARF, appy, cholecystitis, CVA, Diverticulitis, Homicidal, Suicidal, threat to staff... and all critical care pts) @ -No (Preeti Pedersen) Disposition <Jimmie Agosto - Last Filed: 11/18/23 12:30> Is patient prescribed a controlled substance at d/c from ED?: No Time of Disposition: 13:37 <Preeti Pedersen - Last Filed: 11/18/23 21:41> Clinical Impression: Hepatocellular carcinoma, Abdominal distension, Peripheral edema Disposition: HOME SELF-CARE Condition: Stable Instructions (If sedation given, give patient instructions): Leg Edema (ED) Additional Instructions: Please take the spironolactone every day. Jeanette will see her next week. Return for any new or worsening symptoms Prescriptions: RX: Spironolactone 25 mg PO DAILY #7 tablet Referrals: Faby Loving MD [Primary Care Provider] - 1-2 days Zuleima Valente NPC [Nurse Practitioner] - 1-2 days
[2023-11-18 12:46] VITALS: RESP 20; TEMP 98.5
[2023-11-18 13:58] VITALS: BP 107/62; PULSE 90
== END 2023-11-18 14:00 | disposition home or self-care (01) ==
LOC: EC 11:43
DX: C22.0 Liver cell carcinoma (principal); I10 Essential (primary) hypertension; E11.9 Type 2 diabetes mellitus without complications; Z79.891 Long term (current) use of opiate analgesic; Z79.4 Long term (current) use of insulin; Z79.899 Other long term (current) drug therapy; Z88.8 Allergy status to other drugs, medicaments and biological substances
CPT/HCPCS: 99283

== ENCOUNTER → 2023-11-18 | Outpatient (CLI) | payer MEDICARE ==
--- NOTE | 2023-11-18 12:48 | US ---
EXAMINATION TYPE: US abdomen limited DATE OF EXAM: 11/18/2023 COMPARISON: 10/13/2023. CLINICAL INDICATION: Female, 68 years old with history of R18.8 OTHER ASCITES; LIVER CANCER, PER PT. ASCITES CHECK TECHNIQUE: Multiple sonographic images of the right upper quadrant are obtained. FINDINGS: EXAM MEASUREMENTS: Liver Length: 26.5 cm Gallbladder Wall: 0.3 cm CBD: 0.22 cm Right Kidney: 10.2x3.7x3.5 cm Pancreas: Tail obscured by overlying bowel gas Liver: known liver cancer, enlarged with heterogenous appearance. Gallbladder: probable GB seen with tumefactive sludge within Evidence for sonographic Ojeda's sign: No CBD: wnl Right Kidney: No hydronephrosis or masses seen exam limited by body habitus and bowel gas, and enlarged liver. small amount of ascites noted lower quadrants IMPRESSION: 1. Abnormal appearance of the gallbladder fossa. Tumefactive sludge suggested. 2. Known heterogenous appearance of the liver with underlying mass. 3. Small ascites.
== END | disposition home or self-care (01) ==
LOC: RADUSWWP 10:28
PROVIDERS: ATTEND Internal Medicine Hematology & Oncology
DX: R16.0 Hepatomegaly, not elsewhere classified (principal); R18.8 Other ascites; K82.8 Other specified diseases of gallbladder; C22.0 Liver cell carcinoma; E11.9 Type 2 diabetes mellitus without complications; I10 Essential (primary) hypertension; G89.3 Neoplasm related pain (acute) (chronic)
CPT/HCPCS: 76705